=== PATIENT | female | born 1975 | race Caucasian/White ===

== ENCOUNTER 2017-04-04 23:38 | Inpatient (IN) | payer MEDICAID, MEDICARE ==
[2017-04-05 00:36] LABS: Urine Bilirubin Negative (Negative); Urine Glucose Negative (Negative); Urine Nitrite Negative (Negative)
[2017-04-05 00:43] LABS: Hematocrit 47 % (35-47); Hemoglobin 16.7 g/dl (12.0-16.0); Mean Corpuscular HGB Conc 35 g/dl (31-36); Mean Corpuscular Hemoglobin 33 pg (27-31); Mean Corpuscular Volume 94 fL (80-97); Mean Platelet Volume 8 um3 (7.4-10.4); Red Blood Count 5.05 10^6/ul (4.0-5.4); Red Cell Distribution Width 13 % (10.5-15); White Blood Count 8.3 10^3/ul (3.5-10.8)
[2017-04-05 00:51] LABS: Benzodiazepine Urine Screen None Detected (None Detect)
[2017-04-05] MEDS ORDERED: Nicotine GUM* 2 MG ONE (00:53)
[2017-04-05] MEDS ORDERED: Nicotine GUM* 2 MG PO ONE (00:54)
[2017-04-05 01:00] LABS: ALT 16 U/L (7-52); Albumin 4.6 g/dL (3.2-5.2); Alkaline Phosphatase 72 U/L (34-104); BUN/Creatinine Ratio 13.9 (8-20); Blood Urea Nitrogen 10 mg/dL (6-24); CO2 Carbon Dioxide 25 mmol/L (22-32); Calcium 9.7 mg/dL (8.6-10.3); Chloride 107 mmol/L (101-111); EGFR African American 113.7 (>60); EGFR Non-African American 88.4 (>60); Globulin 2.9 g/dL (2-4); Glucose 84 mg/dL (70-100); Sodium 134 mmol/L (133-145); Total Protein 7.5 g/dL (6.4-8.9)
[2017-04-05 01:03] LABS: Acetaminophen < 15 mcg/mL; Alcohol < 10 mg/dL (<10); Salicylate < 2.50 mg/dL (<30)
[2017-04-05 01:11] LABS: Anion Gap 2 mmol/L (2-11)
--- NOTE | 2017-04-05 02:57 | ED ---
Renato Langley Rebecca, scribed for Filiberto Coy MD on 04/05/17 at 0041 . Psychiatric Complaint - HPI Summary HPI Summary: Pt is a 41 y/o F who presents to ED c/o SIs for 2-3 weeks. Pt reports that she presents tonight because "this time I needed to." Pt has a suicide plan with no date with the idea of cutting her wrists or taking sleeping pills. No attempts at suicide. PMhx anxiety, depression, schizophrenia, bipolar disorder. - History Of Current Complaint Chief Complaint: EDMentalHealth Time Seen by Provider: 04/05/17 00:35 Hx Obtained From: Patient Hx Last Menstrual Period: 05/10/13 Onset/Duration: Lasting Weeks - 2-3 weeks, Still Present Character: Depressed - with SIs Aggravating Factor(s): Nothing Alleviating Factor(s): Nothing Related History: Positive For: Prior Psychiatric Issues - Anxiety, depression, schizophrenia, bipolar Has Suicidal: Reports: Thoughts, With A Plan - Allergies/Home Medications Allergies/Adverse Reactions: Allergies Allergy/AdvReac Type Severity Reaction Status Date / Time Aripiprazole [From Abilify] Allergy Itching Verified 05/03/16 19:24 control pills Allergy Unknown Uncoded 05/03/16 19:24 Reaction Details Home Medications: Home Medications Alive Once Daily Womens U 1 tab PO DAILY 04/05/17 [History Confirmed 04/05/17] Calcium Ascorbate [Vitamin C] 1,000 mg PO DAILY 04/05/17 [History Confirmed ] Buxlrge-Hhwgvtulj-Dhos [Calcium & Magnesium + Zin 334-134-5 mg] 1 tab PO DAILY 04/05/17 [History Confirmed 04/05/17] Cetirizine* [ZyrTEC 10 MG TAB*] 10 mg PO DAILY 04/05/17 [History Confirmed 04/05] Doxylamine Succinate (Sleep) [Unisom] 25 mg PO BEDTIME 04/05/17 [History Confirmed 04/05/17] Hydroxyzine Pamoate [Vistaril] 25 mg PO DAILY 04/05/17 [History Confirmed ] Iodine-Vitamin A [Alga] 1 cap PO DAILY 04/05/17 [History Confirmed 04/05/17] Paliperidone SUSTENNA* [Invega Sustenna*] 234 mg IM Q30D 04/05/17 [History Confirmed 04/05/17] PMH/Surg Hx/FS Hx/Imm Hx Endocrine/Hematology History: Denies: Hx Diabetes, Hx Thyroid Disease Cardiovascular History: Denies: Hx Hypertension Respiratory History: Reports: Hx Asthma - IN CHILDHOOD Denies: Hx Chronic Obstructive Pulmonary Disease (COPD) GI History: Denies: Hx Ulcer Musculoskeletal History: Denies: Hx Arthritis Psychiatric History: Reports: Hx Anxiety, Hx Depression, Hx Inpatient Treatment , Hx Community Mental Health Tx, Hx Schizophrenia - SCHIZOAFFECTIVE D/O, BIPOLAR TYPE, Hx Bipolar Disorder, Other Psychiatric Issues/Disorders - SCHIZOAFFECTIVE D/O Denies: Hx Attention Deficit Hyperactivity Disorder, Hx Eating Disorder, Hx Panic Disorder, Hx Post Traumatic Stress Disorder, Hx Suicide Attempt, Hx of Violent Episodes Against Others, Hx Substance Abuse Infectious Disease History: No Infectious Disease History: Denies: Hx Clostridium Difficile, Hx Hepatitis, Hx Human Immunodeficiency Virus (HIV), Hx of Known/Suspected MRSA, Hx Shingles, Hx Tuberculosis, Traveled Outside the [place] in Last 30 Days - Family History Known Family History: Positive: Other - Bipolar disorder Family History: Bipolar D/o - Social History Alcohol Use: None Alcohol Amount: UNKNOWN Hx Substance Use: No Substance Use Type: Reports: None Hx Tobacco Use: Yes - daily Smoking Status (MU): Current Every Day Smoker Type: Cigarettes Have You Smoked in the Last Year: No Review of Systems Negative: Fever Positive: Other - SIs with a plan All Other Systems Reviewed And Are Negative: Yes Physical Exam Triage Information Reviewed: Yes Vital Signs On Initial Exam: Initial Vitals Temp Pulse Resp BP Pulse Ox 97.3 F 91 18 115/76 95 04/04/17 23:41 04/04/17 23:41 04/04/17 23:41 04/04/17 23:41 04/04/17 23:41 Vital Signs Reviewed: Yes Appearance: Positive: Well-Appearing, No Pain Distress Skin: Positive: Warm Head/Face: Positive: Normal Head/Face Inspection Eyes: Positive: DANIELA ENT: Positive: Hearing grossly normal Neck: Positive: Supple Respiratory/Lung Sounds: Positive: Breath Sounds Present Cardiovascular: Positive: RRR Abdomen Description: Positive: Nontender, Soft Bowel Sounds: Positive: Present Musculoskeletal: Positive: Strength/ROM Intact Neurological: Positive: Alert, Oriented to Person Place, Time Diagnostics - Vital Signs Vital Signs Temp Pulse Resp BP Pulse Ox 04/04/17 23:44 98.6 F 66 16 115/76 100 04/04/17 23:41 97.3 F 91 18 115/76 95 - Laboratory Result Diagrams: 04/05/17 00:35 04/05/17 01:15 Lab Statement: Any lab studies that have been ordered have been reviewed, and results considered in the medical decision making process. Course/Dx - Course Assessment/Plan: Pt is a 41 y/o F who presents to ED c/o SIs for 2-3 weeks. Pt reports that she presents tonight because "this time I needed to." Pt has a suicide plan with no date with the idea of cutting her wrists or taking sleeping pills. No attempts at suicide. PMhx anxiety, depression, schizophrenia , bipolar disorder. Medically cleared for MHE at 0125. After [facility], after consult with Dr. Gonzalez it has been determined that the pt will be admitted. - Differential Dx/Clinical Impression Provider Diagnosis: Suicidal ideations - Physician Notifications Instructed by Provider To: Admit As Inpatient Discharge - Discharge Plan Condition: Fair Dis[place] [place] The documentation as recorded by the Renato ferreira Rebecca accurately reflects the service I personally performed and the decisions made by me, Filiberto Coy MD.
[2017-04-05] MEDS ORDERED: Mouth Piece, Nicotine* 1 EACH CARTRIDGE INH ONE (03:14)
[2017-04-05] MEDS: Nicotine Inhaler* 10 MG AMP INH PRN ×2 (03:54→21:00)
[2017-04-05] MEDS ORDERED: diPHENhydraMINE PO* 50 MG PO ONE (04:10)
[2017-04-05] MEDS ORDERED: hydrOXYzine HCL TAB* 25 MG PO ONE (04:10)
[2017-04-05] MEDS ORDERED: hydrOXYzine HCL TAB* 25 MG ONE (04:48)
[2017-04-05] MEDS ORDERED: diPHENhydraMINE PO* 50 MG ONE (04:49)
[2017-04-05] MEDS ORDERED: Al Hydrox/Mg Hydrox/Simet LIQ* 30 ML UDC PO PRN (06:20)
[2017-04-05] MEDS ORDERED: Acetaminophen TAB* 325 MG PO PRN (06:20)
[2017-04-05] MEDS: Nicotine GUM* 2 MG PO PRN ×7 (08:33→21:00)
[2017-04-05] MEDS: hydrOXYzine HCL TAB* 25 MG PO PRN ×3 (08:49→18:33)
[2017-04-05] MEDS: Vitamin THERAPEUTIC TAB PO SCH (10:54)
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
[2017-04-06] MEDS: Vitamin THERAPEUTIC TAB PO SCH (10:30)
[2017-04-06] MEDS: hydrOXYzine HCL TAB* 25 MG PO PRN ×3 (10:32→21:27)
[2017-04-06] MEDS: Nicotine GUM* 2 MG PO PRN ×6 (10:32→21:25)
[2017-04-06] MEDS ORDERED: diPHENhydraMINE PO* 50 MG PO PRN (13:27)
[2017-04-06] MEDS: lamoTRIgine TAB(*) 25 MG PO SCH (14:28)
[2017-04-07] MEDS: Benzocaine/Menthol LOZ* 1 LOZENGE PO PRN ×2 (01:49→23:23)
[2017-04-07] MEDS: Nicotine GUM* 2 MG PO PRN ×6 (09:16→20:22)
[2017-04-07] MEDS: lamoTRIgine TAB(*) 25 MG PO SCH (09:17)
[2017-04-07] MEDS: Vitamin THERAPEUTIC TAB PO SCH (09:17)
[2017-04-07] MEDS: hydrOXYzine HCL TAB* 25 MG PO PRN ×2 (11:33→17:58)
[2017-04-07] MEDS: Nicotine Inhaler* 10 MG AMP INH PRN (11:33)
--- NOTE | 2017-04-07 11:53 | PN ---
MHU: Group Therapy Note - Service Type Service Type: [id number] Group Psychotherapy - Cognitive Behavioral Group Therapy ( CBT):Patient was attentive and participatory in CBT programming this morning, and remained in good behavioral control. Patient expressed positive insights regarding relevant treatment interventions and goals.
--- NOTE | 2017-04-07 14:47 | PN ---
Subjective - Subjective Service Type: 93790 Hosp care 15 min low complexity Subjective: Patient states that her mood is up and down and she's continuing to have intermittent SI throughout the day. She did not sleep well on Benadryl and would like to try trazodone. She identifies her lack of socialization as a main cause of her depression and states that she doesn't have a car and lives over 5 miles out of [place]. This has prompted her to explore the possibility of a [employer] apartment here in town, although she's ambivalent about this due to only having 6 more years to pay off her current home. Objective - Appearance Appearance: Well Developed/Nourished Dysmorphic Features: No Hygiene: Normal Grooming: Well Kept - Behavior Psychomotor Activities: Normal Exhibits Abnormal Movement: No - Attitude and Relatedness Attitude and Relatedness: Cooperative Eye Contact: Fair - Speech Quality: Unpressured Latencies: Normal Quantity: Appropriate - Mood Patient's Decription of Mood: "Sad" - Affect Observed Affect: Fair Affect Consistent with: Euthymia - Thought Process Patient's Thought Process: Coherent Thought Content: Yes Passive Wish, No Suicidal Planning, No Homicidal Ideation, No Paranoid Ideation - Sensorium Experiencing Hallucinations: No, Sensorium is Clear Type of Hallucinations: Visual: No, Auditory: No, Command: No - Level of Consciousness Level of Consciousness: Alert Orientation: Yes Intact, Yes Orientated to Time, Yes Orientated to Place, Yes Orientated to Person - Impulse Control Impulse Control: Tenuous - Insight and Judgement Insight and Judgement: Fair - Group Participation Particating in Group Activities: Yes - Medication Management Medication Management Adherence: Yes Assessment - Assessment Merits Inpatient Hospitalization: For Immediate Safety, For Stabilization Inpatient DSM-IV Dx: Schizoaffective DO, Bipolar Type Clinical Impression: 41 y.o. single, white female with a history of schizoaffective DO, Bipolar type who presents on voluntary status seeking hospitalization for SI Plan - Plan Treatment Plan: Name: ALICE KENNEY Birthdate: 1975 [id number] The patient is taking Invega Sustenna 234mg monthly, next due Wed (04/09), and is now on lamotrigine 25mg PO qam. Will increase lamotrigine to 50mg PO qday. Trazodone 50mg PO qhs for sleep. Continue to treat on the inpatient unit. Continued Medication Management: Different Medication Medications: Current Medications Acetaminophen (Tylenol Tab*) 650 mg PO Q4H PRN PRN Reason: PAIN or TEMP > 101 F Al Hydrox/Mg Hydrox/Simethicone (Maalox Plus*) 30 ml PO Q4H PRN PRN Reason: INDIGESTION Hydroxyzine HCl (Atarax Tab*) 50 mg PO QID PRN PRN Reason: ANXIETY Last Admin: 04/07/17 11:33 Dose: 50 mg Lamotrigine (Lamictal Tab(*)) 50 mg PO DAILY ELLY Multivitamins (Theragran Tab*) 1 tab PO DAILY ELLY Last Admin: 04/07/17 09:17 Dose: 1 tab Nicotine (Nicotine Inhaler*) 10 mg INH Q2H PRN PRN Reason: CRAVING Last Admin: 04/07/17 11:33 Dose: 10 mg Nicotine Polacrilex (Nicotine Gum*) 2 mg PO Q2H PRN PRN Reason: CRAVING Last Admin: 04/07/17 13:40 Dose: 2 mg Throat Lozenges (Chloraseptic Torie*) 1 torie PO Q6H PRN PRN Reason: SORE THROAT Last Admin: 04/07/17 01:49 Dose: 1 torie Trazodone HCl (Desyrel Tab*) 50 mg PO BEDTIME ELLY - Discharge Plan Discharge Plan: Inpatient Hospitalization
[2017-04-07] MEDS: traZODone TAB* 50 MG TAB PO SCH (21:44)
[2017-04-08 08:20] LABS: HDL Cholesterol 31.2 mg/dL
[2017-04-08] MEDS: Vitamin THERAPEUTIC TAB PO SCH (08:28)
[2017-04-08] MEDS: lamoTRIgine TAB(*) 25 MG PO SCH (08:28)
[2017-04-08] MEDS: Nicotine GUM* 2 MG PO PRN ×7 (08:29→20:56)
[2017-04-08] MEDS: hydrOXYzine HCL TAB* 25 MG PO PRN ×2 (08:55→18:54)
[2017-04-08] MEDS: Nicotine Inhaler* 10 MG AMP INH PRN ×2 (12:32→18:54)
--- NOTE | 2017-04-08 13:23 | PN ---
Subjective - Subjective Service Type: 81525 Hosp care 15 min low complexity Subjective: Patient is seen along with URI Botello for follow up. She apparently had made comments to Ms. Ayan earlier that one of her motivations for coming into the hospital was getting on top of the waiting list for [facility] in the community. The patient is informed that this is not how the system works and she will have to wait her turn on an outpatient basis. She denies SI and is tolerating her medications well. Objective - Appearance Appearance: Well Developed/Nourished Dysmorphic Features: No Hygiene: Normal Grooming: Fairly Well Kept - Behavior Psychomotor Activities: Normal Exhibits Abnormal Movement: No - Attitude and Relatedness Attitude and Relatedness: Cooperative Eye Contact: Fair - Speech Quality: Unpressured Latencies: Normal Quantity: Appropriate - Mood Patient's Decription of Mood: "Okay" - Affect Observed Affect: Fair Affect Consistent with: Euthymia - Thought Process Patient's Thought Process: Coherent Thought Content: No Passive Wish, No Suicidal Planning, No Homicidal Ideation, No Paranoid Ideation - Sensorium Experiencing Hallucinations: No, Sensorium is Clear Type of Hallucinations: Visual: No, Auditory: No, Command: No - Level of Consciousness Level of Consciousness: Alert Orientation: Yes Intact, Yes Orientated to Time, Yes Orientated to Place, Yes Orientated to Person - Impulse Control Impulse Control: Intact - Insight and Judgement Insight and Judgement: Good - Group Participation Particating in Group Activities: Yes - Medication Management Medication Management Adherence: Yes Assessment - Assessment Merits Inpatient Hospitalization: Consolidate Improvements, Pending Safe DC Plan Inpatient DSM-IV Dx: Schizoaffective DO, Bipolar Type Clinical Impression: 41 y.o. single, white female with a history of schizoaffective DO, Bipolar type who presents on voluntary status seeking hospitalization for SI Plan - Plan Treatment Plan: Name: ALICE KENNEY Birthdate: 1975 [id number] The patient is taking Invega Sustenna 234mg monthly, next due tomorrow, Fri (), and is now also on lamotrigine 50mg PO qam. Trazodone 50mg PO qhs for sleep. Likely d/c to home tomorrow. Will refer to [facility] program at [facility] to increase socialization. Continued Medication Management: Different Medication Medications: Current Medications Acetaminophen (Tylenol Tab*) 650 mg PO Q4H PRN PRN Reason: PAIN or TEMP > 101 F Al Hydrox/Mg Hydrox/Simethicone (Maalox Plus*) 30 ml PO Q4H PRN PRN Reason: INDIGESTION Hydroxyzine HCl (Atarax Tab*) 50 mg PO QID PRN PRN Reason: ANXIETY Last Admin: 04/08/17 08:55 Dose: 50 mg Lamotrigine (Lamictal Tab(*)) 50 mg PO DAILY [facility] Last Admin: 04/08/17 08:28 Dose: 50 mg Multivitamins (Theragran Tab*) 1 tab PO DAILY [facility] Last Admin: 04/08/17 08:28 Dose: 1 tab Nicotine (Nicotine Inhaler*) 10 mg INH Q2H PRN PRN Reason: CRAVING Last Admin: 04/08/17 12:32 Dose: 10 mg Nicotine Polacrilex (Nicotine Gum*) 2 mg PO Q2H PRN PRN Reason: CRAVING Last Admin: 04/08/17 12:32 Dose: 2 mg Paliperidone Palmitate (Invega Sustenna*) 234 mg IM ONCE ONE Stop: 04/09/17 09:01 Throat Lozenges (Chloraseptic Ángel*) 1 ángel PO Q6H PRN PRN Reason: SORE THROAT Last Admin: 04/07/17 23:23 Dose: 1 ángel Trazodone HCl (Desyrel Tab*) 50 mg PO BEDTIME [facility] Last Admin: 04/07/17 21:44 Dose: 50 mg - Discharge Plan Discharge Plan: Outpatient Follow Up Outpatient Program[facility] Lab Results - Lab Results Lab Results: 04/08/17 04/08/17 07:36 07:36 Hemoglobin A1c 4.9 Triglycerides 391 Cholesterol 195 LDL Cholesterol 86 HDL Cholesterol 31.2
[2017-04-08] MEDS: traZODone TAB* 50 MG TAB PO SCH (21:36)
[2017-04-09] MEDS: Benzocaine/Menthol LOZ* 1 LOZENGE PO PRN (01:12)
[2017-04-09] MEDS: Nicotine GUM* 2 MG PO PRN ×2 (08:40→10:58)
[2017-04-09] MEDS: lamoTRIgine TAB(*) 25 MG PO SCH (08:40)
[2017-04-09] MEDS: Vitamin THERAPEUTIC TAB PO SCH (08:41)
[2017-04-09] MEDS ORDERED: Paliperidone SUSTENNA* 234 MG/1.5 ML IM ONE (09:00)
[2017-04-09 10:05] VITALS: BP 99/69
--- NOTE | 2017-04-09 11:40 | PN ---
MHU: Group Therapy Note - Service Type Service Type: [id number] Group Psychotherapy - Cognitive Behavioral Group Therapy ( CBT):Patient was attentive and participatory in CBT programming this morning, and remained in good behavioral control. Patient expressed positive insights regarding relevant treatment interventions and goals.
[2017-04-09] MEDS: Nicotine Inhaler* 10 MG AMP INH PRN (12:52)
--- NOTE | 2017-04-10 03:39 | DS ---
DISCHARGE SUMMARY: DATE OF ADMISSION: 04/05/17 DATE OF DISCHARGE: 04/09/17 DISCHARGE DIAGNOSES: Onward I: Schizoaffective disorder bipolar type. Onward II: Deferred. Onward III: Remote history of asthma. Onward IV: Severe primary support stressors. Onward V: At the time of admission was 45 and at the time of discharge was 60. CONDITION AT THE TIME OF DISCHARGE: Stable. The patient is calm and cooperative. She has been attending groups and has been safe on all checks. She is social with peers. She appears to be euthymic. She is tolerating her injectable antipsychotic well and she is tolerating her new mood stabilizer lamotrigine well. She has been educated about the risk of a severe rash from this medication and has been instructed to monitor her skin daily and report any rash findings to her outpatient provider. Furthermore, she denies suicidal or homicidal ideations and she is indicating a willingness to continue to follow up at the [facility]. MENTAL STATUS EXAM: At the time of discharge, the patient is a middle-aged white female with close crop short hair, eye glasses, wearing a blue sweat suit. She has got fair eye contact, good posture and is fairly easy to establish a rapport with. Speech has a normal rate, tone, and volume. Mood is euthymic with a full affect. Thought process is linear and goal directed. Thought content is significant for her desire to be discharged from the hospital so that she can follow up with [facility] and try to get into housing services through the [facility]. She denies suicidal or homicidal ideations. She denies auditory or visual hallucinations. She denies paranoia. Insight and judgment are fair given her willingness to seek outpatient treatment. Cognitively, she is awake and alert with what would appear to be an average intellect. DISCHARGE INSTRUCTIONS: To the patient are as follows: A. Medications. 1. She is taking Invega Sustenna 234 mg IM every 4 weeks. Her next injection will be due on 05/07/17. 2. In addition, she is taking hydroxyzine 25 mg as needed for anxiety every 6 hours. 3. She is also taking lamotrigine 50 mg p.o. daily. 4. Trazodone 50 mg p.o. daily. B. Diet: Regular. C. Activity: As tolerated. The patient is declining continuation of nicotine replacement therapy indicating her preference to continue smoking cigarettes for the time being. There are no laboratory or diagnostic studies pending at the time of discharge. D. Followup Care: The patient will follow up within 1 week at [facility]. We are encouraging her to increase her socialization by attending social programing through the [facility] program, which is similarly affiliated with [facility]. HOSPITAL COURSE: Part A: Reason for admission: The patient is a 41-year-old single white female with a history of schizoaffective disorder, depressed type, who arrives at our emergency room requesting voluntary admission due to suicidal ideations. She stated at that time "I have been struggling with feeling suicidal over the past few weeks." She reported that she had been having mental imagery in her mind of slashing her wrist or thinking about taking [id number] sleeping pills. Currently, she lives alone in her own house, which is 5 miles outside of [place]. She notes that she does have access to several over-the- counter medications and could overdose easily if she had been allowed to leave home from the emergency room. She did at that time endorse feeling hopeless and helpless at times stating "I am very isolated." She did deny auditory or visual hallucinations and when prompted on the need for inpatient admission, she stated "I was conflicted because I don't want to be locked up, but then when you said that you would call the doctor for him to make a decision, I just panicked and I thought about the possibility of being discharged." Apparently, she has scheduled an interview with the [facility] within the next several weeks. She is hoping to get rid of her current house selling it in order to move into [facility] so that she could become less socially isolated. The patient states that she is compliant with her Invega Sustenna having received her last dose on 03/12/17, at [facility]. Part B: Psychiatric treatment rendered: The patient was admitted to the adult behavioral health unit and placed on q.15-minute check for her own safety. Because of her depression, we initiated a trial of lamotrigine initially at 25 mg, but then increased 50, which she tolerated well. She complained of difficulty sleeping and we started a trial of 50 mg of trazodone at night time, which was beneficial. For anxiety, she used 25 mg of hydroxyzine. The patient denied suicidal thinking throughout her hospitalization and at one point seemed to admit to staff that her main motivation for coming into the hospital was to try to get to the top of the list of those waiting for support of housing through [place]. She was educated that this is not a meaningful use of inpatient psychiatric resources and she was strongly encouraged to accept discharge, so that she could receive followup care in a less restrictive setting. We did want to give her Invega prior to leaving and she received this on the date of discharge, which is the 04/09/17. At this time, she has been safe on all checks. She denies any active suicidal ideations and she is willing to increase her socialization by attending groups at [facility] through the [employer] organization, which we have formally referred her to. At this time, I do think that she is better served in a less restrictive setting and we certainly wish her the best for a healthy and satisfying future. [id number]/[facility] #: [id number] TIFFANI
== END 2017-04-09 11:55 | disposition home or self-care (01) | DRG 885 ==
LOC: ED 23:38 → BSU 04-05 05:08
PROVIDERS: ADMIT Psychiatry & Neurology Psychiatry; ATTEND Psychiatry & Neurology Psychiatry
DX: F25.0 Schizoaffective disorder, bipolar type (principal); R45.851 Suicidal ideations; F17.210 Nicotine dependence, cigarettes, uncomplicated; Z79.899 Other long term (current) drug therapy; Z88.8 Allergy status to other drugs, medicaments and biological substances
CPT/HCPCS: 36415; 80053; 80061; 80307; 80320; 80329; 81003; 83036; 84443; 85025; 90853; 99222; 99231; 99238; A9270-GY; G0480

== ENCOUNTER 2017-09-25 18:41 | Emergency (ER) | payer MEDICARE, MEDICAID ==
[2017-09-25 20:18] LABS: EGFR Non-African American 92.9 (>60)
[2017-09-25 20:22] LABS: ABS Basophils 0 10^3/ul (0-0.2); ABS Eosinophils 0.1 10^3/ul (0-0.6); ABS Monocytes 0.6 10^3/ul (0-0.8); ABS Neutrophils 8.9 10^3/ul (1.5-7.7); ABS Nucleated RBC 0 10^3/ul; Eosinophil % 0.6 % (0-6); Hematocrit 45 % (35-47); Hemoglobin 16.1 g/dl (12.0-16.0); Lymphocyte % 9.1 % (25-47); Mean Corpuscular HGB Conc 36 g/dl (31-36); Mean Corpuscular Hemoglobin 34 pg (27-31); Mean Corpuscular Volume 94 fL (80-97); Mean Platelet Volume 8 um3 (7.4-10.4); Nucleated Red Blood Cells % 0; Platelet Count 195 10^3/ul (150-450); Red Blood Count 4.79 10^6/ul (4.0-5.4); Red Cell Distribution Width 12 % (10.5-15); White Blood Count 10.6 10^3/ul (3.5-10.8)
[2017-09-25 20:44] LABS: Urine Appearance Clear; Urine Blood Negative (Negative); Urine Color Straw; Urine Ketones Negative (Negative); Urine Protein Negative (Negative); Urine Specific Gravity 1.005 (1.010-1.030); Urine Urobilinogen Negative (Negative)
--- NOTE | 2017-09-25 21:47 | ED ---
Paco Langley Jennifer, scribed for Juan Montez MD on 09/25/17 at 1924 . Substance Abuse/Use - HPI Summary HPI Summary: The patient is a 41 year old female who arrived to the ED by EMS after overdosing on twenty 50 mg pills of Trazadone at 17:30. She called 911 and vomited several times after. The patient describes that she was feeling lonely today because she hasnt had a boyfriend for ten years. The loneliness was building up but was particularly bad today. She denies taking any extra medication today besides what she is normally prescribed. - History Of Current Complaint Chief Complaint: EDOverdose Stated Complaint: POSS OVERDOSE Time Seen by Provider: 09/25/17 19:13 Hx Obtained From: Patient Hx Last Menstrual Period: 05/10/13 Onset/Duration of Drug/ETOH Abuse: Hours - Taken at 17:30 today Ingestion History: Type/Name Of Drug - Trazadone, Amount Ingested - Twenty 50mg pills, Approximate Time Of Ingestion - 17:30 Overdose Characteristics: Oral Timing Of Abuse: Binge Use Severity Initially: Mild Severity Currently: Mild Character: Depressed, Other - Lonely Aggravating Factor(s): Nothing Alleviating Factor(s): Nothing Associated Signs And Symptoms: Vomiting - Allergies/Home Medications Allergies/Adverse Reactions: Allergies Allergy/AdvReac Type Severity Reaction Status Date / Time MS Aripiprazole Allergy Itching Verified 05/03/16 19:24 [facility] pills Allergy Unknown Uncoded 05/03/16 19:24 Reaction Details Home Medications: Home Medications Paliperidone SUSTENNA* [Invega Sustenna*] 234 mg IM MONTHLY 09/25/17 [History Confirmed 09/25/17] lamoTRIgine TAB(*) [LaMICtal TAB(*)] 200 mg PO DAILY 09/25/17 [History Confirmed 09/25/17] PMH/Surg Hx/FS Hx/Imm Hx Endocrine/Hematology History: Denies: Hx Diabetes, Hx Thyroid Disease Cardiovascular History: Denies: Hx Hypertension Respiratory History: Reports: Hx Asthma - IN CHILDHOOD Denies: Hx Chronic Obstructive Pulmonary Disease (COPD) GI History: Denies: Hx Ulcer Musculoskeletal History: Denies: Hx Arthritis Sensory History: Reports: Hx Contacts or Glasses Denies: Hx Hearing Aid Opthamlomology History: Reports: Hx Contacts or Glasses Psychiatric History: Reports: Hx Anxiety, Hx Depression, Hx Inpatient Treatment , Hx Community Mental Health Tx, Hx Schizophrenia - SCHIZOAFFECTIVE D/O, BIPOLAR TYPE, Hx Bipolar Disorder, Other Psychiatric Issues/Disorders - SCHIZOAFFECTIVE D/O Denies: Hx Attention Deficit Hyperactivity Disorder, Hx Eating Disorder, Hx Panic Disorder, Hx Post Traumatic Stress Disorder, Hx Suicide Attempt, Hx of Violent Episodes Against Others, Hx Substance Abuse - Immunization History Date of Tetanus Vaccine: UTD Date of Influenza Vaccine: 2015 Infectious Disease History: No Infectious Disease History: Denies: Hx Clostridium Difficile, Hx Hepatitis, Hx Human Immunodeficiency Virus (HIV), Hx of Known/Suspected MRSA, Hx Shingles, Hx Tuberculosis, Traveled Outside the [place] in Last 30 Days - Family History Known Family History: Positive: Other - Bipolar disorder Family History: Bipolar D/o - Social History Alcohol Use: None Alcohol Amount: UNKNOWN Hx Substance Use: No Substance Use Type: Reports: None Hx Tobacco Use: Yes - daily Smoking Status (MU): Heavy Every Day Tobacco Smoker Type: Cigarettes Amount Used/How Often: 2 ppd Length of Time of Smoking/Using Tobacco: 26 years Have You Smoked in the Last Year: Yes Review of Systems Negative: Fever Positive: Depressed All Other Systems Reviewed And Are Negative: Yes Physical Exam - Summary Physical Exam Summary: Appearance: The patient is well-nourished in no acute distress and in no acute pain. Skin: The skin is warm and dry and skin color reflects adequate perfusion. HEENT: ~The head is normocephalic and atraumatic. The pupils are equal and reactive. The conjunctivae are clear and without drainage. ~Nares are patent and without drainage. ~Mouth reveals moist mucous membranes and the throat is without erythema and exudate. ~The external ears are intact. The ear canals are patent and without drainage. The tympanic membranes are intact. Neck: the neck is supple with full range of motion and non-tender. There are no carotid bruits. ~There is no neck vein distension. Respiratory: Chest is non-tender. ~Lungs are clear to auscultation and breath sounds are symmetrical and equal. Cardiovascular: Heart is regular rate and rhythm. ~There is no murmur or rub auscultated. ~~There is no peripheral edema and pulses are symmetrical and equal. Abdomen: The abdomen is soft and non-tender. ~There are normal bowel sounds heard in all four quadrants and there is no organomegaly palpated. Musculoskeletal: There is no back tenderness noted. ~Extremities are non-tender with full range of motion. ~There is good capillary refill. ~There is no peripheral edema or calf tenderness elicited. Neurological: Patient is alert and oriented to person, place and time. ~The patient has symmetrical motor strength in all four extremities. ~Cranial nerves are grossly intact. Deep tendon reflexes are symmetrical and equal in all four extremities. Psychiatric: The patient has an appropriate affect and does not exhibit any anxiety or depression. Triage Information Reviewed: Yes Vital Signs On Initial Exam: Initial Vitals Temp Pulse Resp BP Pulse Ox 97.7 F 90 14 128/72 90 09/25/17 18:45 09/25/17 18:45 09/25/17 18:45 09/25/17 18:45 09/25/17 18:45 Vital Signs Reviewed: Yes Diagnostics - Vital Signs Vital Signs Temp Pulse Resp BP Pulse Ox 09/25/17 18:45 97.7 F 90 14 128/72 90 - Laboratory Lab Results: Lab Results 09/25/17 09/25/17 09/25/17 Range/Units 19:35 19:35 19:35 WBC 10.6 (3.5-10.8) 10^3/ul RBC 4.79 (4.0-5.4) 10^6/ul Hgb 16.1 H (12.0-16.0) g/dl Hct 45 (35-47) % MCV 94 (80-97) fL MCH 34 H (27-31) pg MCHC 36 (31-36) g/dl RDW 12 (10.5-15) % Plt Count 195 (150-450) 10^3/ul MPV 8 (7.4-10.4) um3 Neut % (Auto) 84.3 H (38-83) % Lymph % (Auto) 9.1 L (25-47) % [place] % (Auto) 5.8 (1-9) % Eos % (Auto) 0.6 (0-6) % Baso % (Auto) 0.2 (0-2) % Absolute Neuts (auto) 8.9 H (1.5-7.7) 10^3/ul Absolute Lymphs (auto) 1.0 (1.0-4.8) 10^3/ul Absolute Monos (auto) 0.6 (0-0.8) 10^3/ul Absolute Eos (auto) 0.1 (0-0.6) 10^3/ul Absolute Basos (auto) 0 (0-0.2) 10^3/ul Absolute Nucleated RBC 0 10^3/ul Nucleated RBC % 0 Sodium 138 (133-145) mmol/L Potassium 3.5 (3.5-5.0) mmol/L Chloride 106 (101-111) mmol/L Carbon Dioxide 26 (22-32) mmol/L Anion Gap 6 (2-11) mmol/L BUN 9 (6-24) mg/dL Creatinine 0.69 (0.51-0.95) mg/dL Est GFR ( Amer) 119.4 (>60) Est GFR (Non-Af Amer) 92.9 (>60) BUN/Creatinine Ratio 13.0 (8-20) Glucose 102 H (70-100) mg/dL Lactic Acid 1.3 (0.5-2.0) mmol/L Calcium 9.5 (8.6-10.3) mg/dL Total Bilirubin 0.30 (0.2-1.0) mg/dL AST 19 (13-39) U/L ALT 14 (7-52) U/L Alkaline Phosphatase 64 (34-104) U/L Total Protein 7.5 (6.4-8.9) g/dL Albumin 4.8 (3.2-5.2) g/dL Globulin 2.7 (2-4) g/dL Albumin/Globulin Ratio 1.8 (1-3) Beta HCG, Quant < 0.60 mIU/mL Urine Color Urine Appearance Urine pH (5-9) Ur Specific [place] (1.010-1.030) Urine Protein (Negative) Urine Ketones (Negative) Urine Blood (Negative) Urine Nitrate (Negative) Urine Bilirubin (Negative) Urine Urobilinogen (Negative) Ur Leukocyte Esterase (Negative) Urine Glucose (Negative) Salicylates < 2.50 (<30) mg/dL Urine Opiates Screen (None Detect) Acetaminophen < 15 mcg/mL Ur Barbiturates Screen (None Detect) Ur Phencyclidine Scrn (None Detect) Ur Amphetamines Screen (None Detect) U Benzodiazepines Scrn (None Detect) Urine Cocaine Screen (None Detect) U Cannabinoids Screen (None Detect) Serum Alcohol < 10 (<10) mg/dL 09/25/17 09/25/17 Range/Units 20:26 20:26 WBC (3.5-10.8) 10^3/ul RBC (4.0-5.4) 10^6/ul Hgb (12.0-16.0) g/dl Hct (35-47) % MCV (80-97) fL MCH (27-31) pg MCHC (31-36) g/dl RDW (10.5-15) % Plt Count (150-450) 10^3/ul MPV (7.4-10.4) um3 Neut % (Auto) (38-83) % Lymph % (Auto) (25-47) % [place] % (Auto) (1-9) % Eos % (Auto) (0-6) % Baso % (Auto) (0-2) % Absolute Neuts (auto) (1.5-7.7) 10^3/ul Absolute Lymphs (auto) (1.0-4.8) 10^3/ul Absolute Monos (auto) (0-0.8) 10^3/ul Absolute Eos (auto) (0-0.6) 10^3/ul Absolute Basos (auto) (0-0.2) 10^3/ul Absolute Nucleated RBC 10^3/ul Nucleated RBC % Sodium (133-145) mmol/L Potassium (3.5-5.0) mmol/L Chloride (101-111) mmol/L Carbon Dioxide (22-32) mmol/L Anion Gap (2-11) mmol/L BUN (6-24) mg/dL Creatinine (0.51-0.95) mg/dL Est GFR ( Amer) (>60) Est GFR (Non-Af Amer) (>60) BUN/Creatinine Ratio (8-20) Glucose (70-100) mg/dL Lactic Acid (0.5-2.0) mmol/L Calcium (8.6-10.3) mg/dL Total Bilirubin (0.2-1.0) mg/dL AST (13-39) U/L ALT (7-52) U/L Alkaline Phosphatase (34-104) U/L Total Protein (6.4-8.9) g/dL Albumin (3.2-5.2) g/dL Globulin (2-4) g/dL Albumin/Globulin Ratio (1-3) Beta HCG, Quant mIU/mL Urine Color Straw Urine Appearance Clear Urine pH 6.0 (5-9) Ur Specific [place] 1.005 L (1.010-1.030) Urine Protein Negative (Negative) Urine Ketones Negative (Negative) Urine Blood Negative (Negative) Urine Nitrate Negative (Negative) Urine Bilirubin Negative (Negative) Urine Urobilinogen Negative (Negative) Ur Leukocyte Esterase Negative (Negative) Urine Glucose Negative (Negative) Salicylates (<30) mg/dL Urine Opiates Screen None detected (None Detect) Acetaminophen mcg/mL Ur Barbiturates Screen None detected (None Detect) Ur Phencyclidine Scrn None detected (None Detect) Ur Amphetamines Screen None detected (None Detect) U Benzodiazepines Scrn None detected (None Detect) Urine Cocaine Screen None detected (None Detect) U Cannabinoids Screen None detected (None Detect) Serum Alcohol (<10) mg/dL Result Diagrams: 09/25/17 19:35 09/25/17 19:35 Lab Statement: Any lab studies that have been ordered have been reviewed, and results considered in the medical decision making process. - EKG 19:18 Cardiac Rate: NL EKG Rhythm: Sinus Rhythm - 82 BPM EKG Interpretation: Borderline QTC Course/Dx - Course Course Of Treatment: Ms. Philip was depressed and took an unknown quantity of trazodone. She called EMS herself after. Her W/U is negative and she is being observed at this time. - Diagnoses Provider Diagnoses: Overdose Discharge - Discharge Plan Condition: Stable Disposition: OTHER Discharge Disposition Comment: Signed out at change of shift to Dr. Cifuentes Referrals: Renate Nicholson MD [Medical Doctor] - The documentation as recorded by the Paco ferreira Jennifer accurately reflects the service I personally performed and the decisions made by me, Juan Montez MD.
[2017-09-26 04:46] VITALS: BP 107/64
--- NOTE | 2017-09-26 04:46 | ED ---
I, Meera Ly, scribed for Kiran Cifuentes MD on 09/26/17 at 0440 . Progress - Consult/PCP Time Called: 18:45 Course/Dx - Course Course Of Treatment: Ms. Philip was depressed and took an unknown quantity of trazodone. She called EMS herself after. Her W/U is negative and she is being observed at this time. The pt is safe to discharge. - Diagnoses Provider Diagnoses: Overdose, Depression The documentation as recorded by the Malachi ferreira Stephanie accurately reflects the service I personally performed and the decisions made by me, Kiran Cifuentes MD.
== END 2017-09-26 04:45 ==
LOC: ED 18:41
DX: T43.212A Poisoning by selective serotonin and norepinephrine reuptake inhibitors, intentional self-harm, initial encounter (principal); F17.210 Nicotine dependence, cigarettes, uncomplicated; Z88.8 Allergy status to other drugs, medicaments and biological substances
CPT/HCPCS: 36415; 80053; 80307; 80320; 80329; 81003; 83605; 84702; 85025; 93005; 99285; G0480

== ENCOUNTER 2018-05-10 13:56 | Emergency (ER) | payer MEDICARE, MEDICAID ==
--- NOTE | 2018-05-10 14:19 | ED ---
HPI Chest Pain - HPI Summary HPI Summary: This patient is a 42 year old F BIBA to [facility] with a chief complaint of L-sided CP that began at approximately 1000 today. The patient rates the pain 2/10 in severity. Symptoms aggravated by deep breaths. Symptoms alleviated by nothing. Patient reports SOB. Patient denies nausea and vomiting. Patient reports that she has similar chest pains approximately every 6 months that resolve on their own. - History of Current Complaint Chief Complaint: EDChestPainROMI Time Seen by Provider: 05/10/18 14:09 Hx Obtained From: Patient Hx Last Menstrual Period: 05/10/13 Onset/Duration: Started Hours Ago, Still Present Timing: Constant Initial Severity: Mild Current Severity: Mild Pain Intensity: 2 Pain Scale Used: 0-10 Numeric Chest Pain Location: Left Lateral Chest Pain Radiates: No Aggravating Factor(s): Deep Breaths Alleviating Factor(s): Nothing Associated Signs and Symptoms: Positive: Shortness of Breath. Negative: Nausea , Vomiting - Additional Pertinent History Primary Care Physician: ELENO - Allergy/Home Medications Allergies/Adverse Reactions: Allergies Allergy/AdvReac Type Severity Reaction Status Date / Time MS Aripiprazole Allergy Itching Verified 05/03/16 19:24 [From [facility]] control pills Allergy Unknown Uncoded 05/03/16 19:24 Reaction Details PMH/Surg Hx/FS Hx/Imm Hx Previously Healthy: No Endocrine/Hematology History: Denies: Hx Diabetes, Hx Thyroid Disease Cardiovascular History: Denies: Hx Hypertension Respiratory History: Reports: Hx Asthma - IN CHILDHOOD Denies: Hx Chronic Obstructive Pulmonary Disease (COPD) GI History: Denies: Hx Ulcer Musculoskeletal History: Denies: Hx Arthritis Sensory History: Reports: Hx Contacts or Glasses Denies: Hx Hearing Aid Opthamlomology History: Reports: Hx Contacts or Glasses Psychiatric History: Reports: Hx Anxiety, Hx Depression, Hx Inpatient Treatment , Hx Community Mental Health Tx, Hx Schizophrenia - SCHIZOAFFECTIVE D/O, BIPOLAR TYPE, Hx Bipolar Disorder, Other Psychiatric Issues/Disorders - SCHIZOAFFECTIVE D/O Denies: Hx Attention Deficit Hyperactivity Disorder, Hx Eating Disorder, Hx Panic Disorder, Hx Post Traumatic Stress Disorder, Hx Suicide Attempt, Hx of Violent Episodes Against Others, Hx Substance Abuse - Cancer History Hx Chemotherapy: No Hx Radiation Therapy: No - Immunization History Date of Tetanus Vaccine: UTD Date of Influenza Vaccine: 2015 Infectious Disease History: No Infectious Disease History: Denies: Hx Clostridium Difficile, Hx Hepatitis, Hx Human Immunodeficiency Virus (HIV), Hx of Known/Suspected MRSA, Hx Shingles, Hx Tuberculosis, Traveled Outside the [place] in Last 30 Days - Family History Known Family History: Positive: Cardiac Disease - [place] - father at 49, Other - Bipolar disorder Family History: Bipolar D/o - Social History Occupation: Disabled Lives: With Family Alcohol Use: None Alcohol Amount: UNKNOWN Hx Substance Use: No Substance Use Type: Reports: None Hx Tobacco Use: Yes - daily Smoking Status (MU): Former Smoker Type: Cigarettes Amount Used/How Often: 2 ppd Length of Time of Smoking/Using Tobacco: 26 years Have You Smoked in the Last Year: Yes Review of Systems Positive: Chest Pain Positive: Shortness Of Breath Negative: Vomiting, Nausea All Other Systems Reviewed And Are Negative: Yes Physical Exam - Summary Physical Exam Summary: VITAL SIGNS: Reviewed. GENERAL: Patient is a well-developed and nourished female who is lying comfortable in the stretcher. Patient is not in any acute respiratory distress. HEAD AND FACE: No signs of trauma. No ecchymosis, hematomas or skull depressions. No sinus tenderness. EYES: PERRLA, EOMI x 2, No injected conjunctiva, no nystagmus. EARS: Hearing grossly intact. Ear canals and tympanic membranes are within normal limits. MOUTH: Oropharynx within normal limits. NECK: Supple, trachea is midline, no adenopathy, no JVD, no carotid bruit, no c- spine tenderness, neck with full ROM. CHEST: Symmetric, no tenderness at palpation LUNGS: Clear to auscultation bilaterally. No wheezing or crackles. CVS: Regular rate and rhythm, S1 and S2 present, no murmurs or gallops appreciated. ABDOMEN: Soft, non-tender. No signs of distention. No rebound no guarding, and no masses palpated. Bowel sounds are normal. EXTREMITIES: FROM in all major joints, no edema, no cyanosis or clubbing. NEURO: Alert and oriented x 3. No acute neurological deficits. Speech is normal and follows commands. SKIN: Dry and warm Triage Information Reviewed: Yes Vital Signs On Initial Exam: Initial Vitals Temp Pulse Resp BP Pulse Ox 98.0 F 83 17 118/72 96 05/10/18 13:59 05/10/18 13:59 05/10/18 13:59 05/10/18 13:59 05/10/18 13:59 Vital Signs Reviewed: Yes Diagnostics - Vital Signs Vital Signs Temp Pulse Resp BP Pulse Ox 05/10/18 13:59 98.0 F 83 17 118/72 96 - Laboratory Result Diagrams: 05/10/18 14:49 05/10/18 14:49 Lab Statement: Any lab studies that have been ordered have been reviewed, and results considered in the medical decision making process. - Radiology CXR Radiology Interpretation Completed By: Radiologist - CXR reveals, per radiologist, no active cardiopulmonary disease. ED physician has reviewed this radiology report. - EKG 1441 Cardiac Rate: NL EKG Rhythm: Sinus Rhythm - [address] Segment: Normal Chest Pain Course/Dx - Course Assessment/Plan: This patient is a 42 year old F BIBA to [facility] with a chief complaint of L-sided CP that began at approximately 1000 today. The patient rates the pain 2/10 in severity. Symptoms aggravated by deep breaths. Symptoms alleviated by nothing. Patient reports SOB. Patient denies nausea and vomiting. Patient reports that she has similar chest pains approximately every 6 months that resolve on their own. Blood work without any significant abnormality. 2 troponins 4 hours apart 0.00. EKG doesn't show any ST elevation. Chest x-ray shows no acute pathology. In the ED course the patient was given Toradol and the symptoms resolved. Therefore believe that the symptoms are secondary to more noncardiac chest pain. However the patient was discharged home with follow -up with primary care physician for further workup and management. She was given instructions to return to emergency if she develops any other type of chest pain, shreds of breath, palpitations, nausea vomiting. The patient understands and agrees. Patient is hemodynamically stable alert oriented 3. I discussed all the findings and test results with the patient. Patient was instructed to return to the emergency room immediately if any of the symptoms return or worsens. Plan of care was discussed with the patient and understands and agrees. All questions were answered at patient satisfaction. There were no further complaints or concerns. Lung exam before discharge: CTA B/L. Good air exchange. No wheezing or crackles heard. CVS: S1 and S2 present. No murmurs appreciated. Patient is alert and oriented x 3. Patient is hemodynamically stable. Patient will be discharged home with follow up PCP in the next 2-3 days. Cardiac score is equal to 0. - Chest Pain Differential Diagnosis/HQI/PQRI: Acute [place], ACS, Angina, CHF, Chest Wall, GI Disease, Lower Respiratory Infection, Pulmonary Edema - Diagnoses Provider Diagnoses: Atypical chest pain Discharge - Sign-Out/Discharge Documenting (check all that apply): Patient Departure - Discharge home - Discharge Plan Condition: Stable Disposition: HOME Patient Education Materials: Chest Pain (ED) Referrals: Laura Arizmendi MD [Primary Care Provider] - 2 Days Additional Instructions: RETURN TO THE EMERGENCY DEPARTMENT FOR NEW OR WORSENING SYMPTOMS - Billing Disposition and Condition Condition: STABLE Disposition: Home - Attestation Statements Document Initiated by Scribe: Yes Documenting Scribe: Julianna Girard Provider For Whom Cary is Documenting (Include Credential): Monico Shoemaker MD Scribe Attestation: Julianna Langley, scribed for Monico Shoemaker MD on 05/12/18 at 1841. Scribe Documentation Reviewed: Yes Provider Attestation: The documentation as recorded by the Julianna ferreira accurately reflects the service I personally performed and the decisions made by , Monico Shoemaker MD
[2018-05-10 15:02] LABS: ABS Basophils 0 10^3/ul (0-0.2); ABS Eosinophils 0.1 10^3/ul (0-0.6); ABS Lymphocytes 1.7 10^3/ul (1.0-4.8); ABS Monocytes 0.6 10^3/ul (0-0.8); ABS Neutrophils 5.5 10^3/ul (1.5-7.7); ABS Nucleated RBC 0 10^3/ul; Eosinophil % 1.4 % (0-6); Hematocrit 38 % (35-47); Hemoglobin 13.4 g/dl (12.0-16.0); Lymphocyte % 21.4 % (25-47); Mean Corpuscular HGB Conc 35 g/dl (31-36); Mean Corpuscular Hemoglobin 32 pg (27-31); Mean Corpuscular Volume 91 fL (80-97); Mean Platelet Volume 7.3 um3 (7.4-10.4); Nucleated Red Blood Cells % 0.2; Platelet Count 209 10^3/ul (150-450); Red Blood Count 4.21 10^6/ul (4.00-5.40); Red Cell Distribution Width 12 % (10.5-15); White Blood Count 7.9 10^3/ul (3.5-10.8)
[2018-05-10 15:06] LABS: Urine Appearance Cloudy; Urine Blood Negative (Negative); Urine Color Yellow; Urine Ketones Negative (Negative); Urine Protein Negative (Negative); Urine Specific Gravity 1.002 (1.010-1.030); Urine Urobilinogen Negative (Negative)
--- NOTE | 2018-05-10 15:13 | RAD ---
HISTORY: CP COMPARISONS: None VIEWS: 1: frontal AP view of the chest at 3:00 PM FINDINGS: LINES AND TUBES: None. CARDIOMEDIASTINAL SILHOUETTE: The cardiomediastinal silhouette is normal for portable technique. PLEURA: The costophrenic angles are sharp. No pleural abnormalities are noted. LUNG PARENCHYMA: The lungs are clear. ABDOMEN: The upper abdomen is clear. There is no subphrenic gas. BONES AND SOFT TISSUES: No bone or soft tissue abnormalities are noted. IMPRESSION: NO ACTIVE CARDIOPULMONARY DISEASE.
[2018-05-10 15:20] LABS: EGFR Non-African American 63.1 (>60)
[2018-05-10] MEDS ORDERED: Ketorolac INJ* 30 MG/ML 1 ML VIAL IV PUSH ONE (15:55)
[2018-05-10 18:49] VITALS: BP 117/76
== END 2018-05-10 18:48 | disposition home or self-care (01) ==
LOC: ED 13:56
DX: R07.89 Other chest pain (principal); Z88.8 Allergy status to other drugs, medicaments and biological substances; Z87.891 Personal history of nicotine dependence
CPT/HCPCS: 36415; 71045; 80053; 81003; 82550; 82553; 83605; 83735; 83880; 84443; 84484; 84702; 85025; 85379; 93005; 96374; 99284; J1885

== ENCOUNTER 2018-05-11 15:14 | Emergency (ER) | payer MEDICARE, MEDICAID ==
--- NOTE | 2018-05-11 15:52 | ED ---
HPI Chest Pain - HPI Summary HPI Summary: The pt is a 42 y/o female presenting to [facility] c/o L sided CP under the breast, since yesterday worsened today. The aching pain rated 4/10 in severity is aggravated by breathing. She was seen yesterday at [facility] for the same sx and called her PCP today morning , who referred her to the ED. - History of Current Complaint Chief Complaint: EDChestPainROMI Time Seen by Provider: 05/11/18 15:39 Hx Obtained From: Patient Hx Last Menstrual Period: 05/10/13 Onset/Duration: Still Present, Worse Since - Today morning Current Severity: Mild Pain Intensity: 4 Pain Scale Used: 0-10 Numeric Chest Pain Location: Diffuse - Under the L breast Aggravating Factor(s): Deep Breaths Associated Signs and Symptoms: Positive: Chest Pain - Additional Pertinent History Primary Care Physician: ELENO - Allergy/Home Medications Allergies/Adverse Reactions: Allergies Allergy/AdvReac Type Severity Reaction Status Date / Time MS Aripiprazole Allergy Itching Verified 05/03/16 19:24 [From [facility]] control pills Allergy Unknown Uncoded 05/03/16 19:24 Reaction Details PMH/Surg Hx/FS Hx/Imm Hx Previously Healthy: No Endocrine/Hematology History: Denies: Hx Diabetes, Hx Thyroid Disease Cardiovascular History: Denies: Hx Hypertension Respiratory History: Reports: Hx Asthma - IN CHILDHOOD Denies: Hx Chronic Obstructive Pulmonary Disease (COPD) GI History: Denies: Hx Ulcer Musculoskeletal History: Denies: Hx Arthritis Sensory History: Reports: Hx Contacts or Glasses Denies: Hx Hearing Aid Opthamlomology History: Reports: Hx Contacts or Glasses Psychiatric History: Reports: Hx Anxiety, Hx Depression, Hx Inpatient Treatment , Hx Community Mental Health Tx, Hx Schizophrenia - SCHIZOAFFECTIVE D/O, BIPOLAR TYPE, Hx Bipolar Disorder, Other Psychiatric Issues/Disorders - SCHIZOAFFECTIVE D/O Denies: Hx Attention Deficit Hyperactivity Disorder, Hx Eating Disorder, Hx Panic Disorder, Hx Post Traumatic Stress Disorder, Hx Suicide Attempt, Hx of Violent Episodes Against Others, Hx Substance Abuse - Cancer History Hx Chemotherapy: No Hx Radiation Therapy: No - Immunization History Date of Tetanus Vaccine: UTD Date of Influenza Vaccine: 2015 Infectious Disease History: No Infectious Disease History: Denies: Hx Clostridium Difficile, Hx Hepatitis, Hx Human Immunodeficiency Virus (HIV), Hx of Known/Suspected MRSA, Hx Shingles, Hx Tuberculosis, Traveled Outside the US in Last 30 Days - Family History Known Family History: Positive: Cardiac Disease - [place] - father at 49, Other - Bipolar disorder Family History: Bipolar D/o - Social History Occupation: Unemployed, Disabled Lives: Alone Alcohol Use: None Alcohol Amount: UNKNOWN Hx Substance Use: No Substance Use Type: Reports: None Hx Tobacco Use: Yes - daily Smoking Status (MU): Former Smoker Type: Cigarettes Amount Used/How Often: 2 ppd Length of Time of Smoking/Using Tobacco: 26 years Have You Smoked in the Last Year: Yes Review of Systems Negative: Fever Positive: Chest Pain All Other Systems Reviewed And Are Negative: Yes Physical Exam - Summary Physical Exam Summary: Appearance: The patient is well-nourished in no acute distress and in no acute pain. Skin: The skin is warm and dry and skin color reflects adequate perfusion. HEENT: The head is normocephalic and atraumatic. The pupils are equal and reactive. The conjunctivae are clear and without drainage. Nares are patent and without drainage. Mouth reveals moist mucous membranes and the throat is without erythema and exudate. The external ears are intact. The ear canals are patent and without drainage. The tympanic membranes are intact. Neck: The neck is supple with full range of motion and non-tender. There are no carotid bruits. There is no neck vein distension. Respiratory: Chest is non-tender. Lungs are clear to auscultation and breath sounds are symmetrical and equal. Cardiovascular: Heart is regular rate and rhythm. There is no murmur or rub auscultated. There is no peripheral edema and pulses are symmetrical and equal. Abdomen: The abdomen is soft and non-tender. There are normal bowel sounds heard in all four quadrants and there is no organomegaly palpated. Musculoskeletal: There is no back tenderness noted. Extremities are non-tender with full range of motion. There is good capillary refill. There is no peripheral edema or calf tenderness elicited. Neurological: Patient is alert and oriented to person, place and time. The patient has symmetrical motor strength in all four extremities. Cranial nerves are grossly intact. Deep tendon reflexes are symmetrical and equal in all four extremities. Triage Information Reviewed: Yes Vital Signs On Initial Exam: Initial Vitals Temp Pulse Resp BP Pulse Ox 98.8 F 86 16 118/67 97 05/11/18 15:21 10/01/18 15:21 05/11/18 15:21 05/11/18 15:21 05/11/18 15:21 Vital Signs Reviewed: Yes Diagnostics - Vital Signs Vital Signs Temp Pulse Resp BP Pulse Ox 05/11/18 15:21 98.8 F 86 16 118/67 97 - Laboratory Lab Statement: Any lab studies that have been ordered have been reviewed, and results considered in the medical decision making process. Chest Pain Course/Dx - Course Course Of Treatment: Ms. Philip was seen here in the emergency department yesterday for left-sided chest pain which was worked up with x-ray and labs including a delayed troponin and d-dimer and EKG. She was discharged to follow up with her PCP however when she called the office today they recommended she come to the emergency department. She states that nothing has changed since yesterday which she continues to have the pain although it is milder. A single troponin is still 0 as it was yesterday. As yesterday I have a low index suspicion for anything serious occurring and recommended that she use ibuprofen and follow-up - Diagnoses Provider Diagnoses: Chest pain Discharge - Sign-Out/Discharge Documenting (check all that apply): Patient Departure - DC - Discharge Plan Condition: Stable Disposition: HOME Patient Education Materials: Chest Pain (ED) Referrals: Laura Arzimendi MD [Primary Care Provider] - 3 Days Additional Instructions: Return to ED for any new or worsening symptoms - Billing Disposition and Condition Condition: STABLE Disposition: Home - Attestation Statements Document Initiated by Scribe: Yes Documenting Scribe: Yue Rubin Provider For Whom Cary is Documenting (Include Credential): Dr. Juan Montez MD Scribe Attestation: Yue Langley , scribed for Dr. uJan Montez MD on 05/11/18 at 2133. Scribe Documentation Reviewed: Yes Provider Attestation: The documentation as recorded by the Yue ferreira accurately reflects the service I personally performed and the decisions made by me, Dr. Juan Montez MD
[2018-05-11 17:04] VITALS: BP 122/61
== END 2018-05-11 17:03 | disposition home or self-care (01) ==
LOC: ED 15:14
DX: R07.9 Chest pain, unspecified (principal); Z87.891 Personal history of nicotine dependence
CPT/HCPCS: 36415; 84484; 99282

== ENCOUNTER 2019-07-11 17:15 | Inpatient (IN) | payer BC, MEDICAID ==
--- NOTE | 2019-07-11 17:39 | ED ---
Psychiatric Complaint - HPI Summary HPI Summary: The patient is a 43 y/o F arriving by ambulance to [facility] with a chief complaint of confusion that has resolved. EMS reports that she was found wandering outside in the elements by police, so they took her home. They re-checked on her later, and they found her to still be slightly confused while sitting in the entrance of her home, warranting their call to EMS to bring her here. In the ED, she is alert and oriented, and she does not have any complaints. She denies any fevers, chills, cough, suicidal ideations, or homicidal ideations. PMHx: asthma, anxiety, depression, inpatient treatment, schizophrenia, bipolar disorder. FHx: bipolar disorder. Former smoker, no EtOH, no substance use. Medications reviewed. Allergies noted. - History Of Current Complaint Time Seen by Provider: 07/11/19 17:19 Hx Obtained From: Patient Hx Last Menstrual Period: 05/10/13 Onset/Duration: Resolved - confusion Timing: Hours Severity Initially: Moderate Severity Currently: None Aggravating Factor(s): Nothing Alleviating Factor(s): Nothing Associated Signs And Symptoms: Positive: Confused Related History: Positive For: Prior Psychiatric Issues - anxiety, depression, schizophrenia, bipolar disorder Has Suicidal: Denies: Thoughts Has Homicidal: Denies: Thoughts - Allergies/Home Medications Allergies/Adverse Reactions: Allergies Allergy/AdvReac Type Severity Reaction Status Date / Time aripiprazole [From [facility]] Allergy Itching Verified 07/11/19 22:02 control pills Allergy Unknown Uncoded 07/11/19 22:02 Reaction Details Home Medications: Home Medications Quetiapine Fumarate [Quetiapine Fumarate ER] 300 mg PO DAILY 07/11/19 [History Confirmed 07/11/19] PMH/Surg Hx/FS Hx/Imm Hx Endocrine/Hematology History: Denies: Hx Diabetes, Hx Thyroid Disease Cardiovascular History: Denies: Hx Hypercholesterolemia, Hx Hypertension Respiratory History: Reports: Hx Asthma - IN CHILDHOOD Denies: Hx Chronic Obstructive Pulmonary Disease (COPD) GI History: Denies: Hx Ulcer Musculoskeletal History: Denies: Hx Arthritis Sensory History: Reports: Hx Contacts or Glasses Denies: Hx Hearing Aid Opthamlomology History: Reports: Hx Contacts or Glasses Psychiatric History: Reports: Hx Anxiety, Hx Depression, Hx Inpatient Treatment , Hx Community Mental Health Tx, Hx Schizophrenia - SCHIZOAFFECTIVE D/O, BIPOLAR TYPE, Hx Bipolar Disorder, Other Psychiatric Issues/Disorders - SCHIZOAFFECTIVE D/O Denies: Hx Attention Deficit Hyperactivity Disorder, Hx Eating Disorder, Hx Panic Disorder, Hx Post Traumatic Stress Disorder, Hx Suicide Attempt, Hx of Violent Episodes Against Others, Hx Substance Abuse - Cancer History Hx Chemotherapy: No Hx Radiation Therapy: No - Surgical History Surgical History: None Surgery Procedure, Year, and Place: none - Immunization History Date of Tetanus Vaccine: UTD Date of Influenza Vaccine: 2015 Infectious Disease History: Denies: Hx Clostridium Difficile, Hx Hepatitis, Hx Human Immunodeficiency Virus (HIV), Hx of Known/Suspected MRSA, Hx Shingles, Hx Tuberculosis - Family History Known Family History: Positive: Cardiac Disease - [place] - father at 49, Other - Bipolar disorder Family History: Bipolar D/o - Social History Alcohol Use: None Hx Substance Use: No Substance Use Type: Reports: None Hx Tobacco Use: Yes - daily Smoking Status (MU): Former Smoker Type: Cigarettes Amount Used/How Often: 2 ppd Length of Time of Smoking/Using Tobacco: 26 years Have You Smoked in the Last Year: Yes Review of Systems Negative: Fever, Chills Negative: Cough Psychological: Other - confusion Negative: Other - suicidal or homicidal ideations All Other Systems Reviewed And Are Negative: Yes Physical Exam - Summary Physical Exam Summary: VITAL SIGNS: Reviewed. GENERAL: Patient is a well-developed and nourished female who is lying comfortable in the stretcher. Patient is not in any acute respiratory distress. Unkempt in appearance, poor hygiene. HEAD AND FACE: No signs of trauma. No ecchymosis, hematomas or skull depressions. No sinus tenderness. EYES: PERRLA, EOMI x 2, No injected conjunctiva, no nystagmus. EARS: Hearing grossly intact. Ear canals and tympanic membranes are within normal limits. MOUTH: Oropharynx within normal limits. NECK: Supple, trachea is midline, no adenopathy, no JVD, no carotid bruit, no c- spine tenderness, neck with full ROM. CHEST: Symmetric, no tenderness at palpation. LUNGS: Clear to auscultation bilaterally. No wheezing or crackles. CVS: Regular rate and rhythm, S1 and S2 present, no murmurs or gallops appreciated. ABDOMEN: Soft, non-tender. No signs of distention. No rebound, no guarding, and no masses palpated. Bowel sounds are normal. EXTREMITIES: FROM in all major joints, no edema, no cyanosis or clubbing. NEURO: Alert and oriented x 3. No acute neurological deficits. Speech is normal and follows commands. SKIN: Dry and warm. PSYCH: Depressed, quiet, and denies any suicidal thoughts or plan. No homicidal thoughts or plan. No signs of psychosis or pressure speech. No tangential speech. Triage Information Reviewed: Yes Vital Signs Reviewed: Yes Procedures - Sedation Patient Received Moderate/Deep Sedation with Procedure: No Diagnostics - Laboratory Result Diagrams: 07/11/19 17:40 07/11/19 17:40 Lab Statement: Any lab studies that have been ordered have been reviewed, and results considered in the medical decision making process. Re-Evaluation - Re-Evaluation First Eval Re-Evaluation Time: 18:35 Comment: Patient is medically clear for mental health evaluation. Course/Dx - Course Assessment/Plan: The patient is a 43 y/o F arriving by ambulance to [facility] with a chief complaint of confusion that has resolved. EMS reports that she was found wandering outside in the elements by police, so they took her home. They re-checked on her later, and they found her to still be slightly confused while sitting in the entrance of her home, warranting their call to EMS to bring her here. In the ED, she is alert and oriented, and she does not have any complaints. She denies any fevers, chills, cough, suicidal ideations, or homicidal ideations. PMHx: asthma, anxiety, depression, inpatient treatment, schizophrenia, bipolar disorder. FHx: bipolar disorder. Former smoker, no EtOH, no substance use. Blood work w/o a significant abnormality. She is medically cleared. She is awaiting a MHE. Patient is hemodynamically stable and A+O x 3. Patient will be signed out to Dr. Vincent at shift change. - Differential Dx/Clinical Impression Differential Diagnosis/HQI/PQRI: Positive: Bipolar Disorder, Depression Provider Diagnosis: Schizoaffective disorder Discharge ED - Sign-Out/Discharge Documenting (check all that apply): Sign-Out Patient Signing out patient TO: Whitney Vincent - Patient is a sign-out to Dr. Whitney Vincent MD, at change of shift at 1900 on 07/11/19, pending mental health evaluation and disposition. - Discharge Plan Condition: Stable Disposition: [facility]IATRIC FACILITY[facility] - Attestation Statements Document Initiated by Cary: Yes Documenting Scribe: Luna Bains Provider For Whom Cary is Documenting (Include Credential): Dr. Monico Shoemaker MD Scribe Attestation: Luna Langley, scribed for Dr. Monico Shoemaker MD on 07/12/19 at 0947. Scribe Documentation Reviewed: Yes Provider Attestation: The documentation as recorded by the Luna ferreira accurately reflects the service I personally performed and the decisions made by me, Dr. Monico Shoemaker MD Status of Scribe Document: Viewed
[2019-07-11 17:56] LABS: ABS Lymphocytes 1.2 10^3/ul (1.0-4.8); ABS Monocytes 0.6 10^3/ul (0-0.8); ABS Neutrophils 6.1 10^3/ul (1.5-7.7); Eosinophil % 0.6 %; Hematocrit 41 % (35-47); Hemoglobin 14.8 g/dL (12.0-16.0); Lymphocyte % 15.4 %; Mean Corpuscular HGB Conc 36 g/dL (31-36); Mean Corpuscular Hemoglobin 33 pg (27-31); Mean Corpuscular Volume 93 fL (80-97); Mean Platelet Volume 8.1 fL (7.4-10.4); Platelet Count 262 10^3/uL (150-450); Red Blood Count 4.43 10^6 /uL (3.70-4.87); Red Cell Distribution Width 12 % (10-15)
[2019-07-11 18:00] LABS: Urine Appearance Cloudy; Urine Bilirubin Negative (Negative); Urine Blood Negative (Negative); Urine Color Amber; Urine Glucose Negative (Negative); Urine Ketones 1+ (Negative); Urine Nitrite Negative (Negative); Urine Protein 1+(30 mg/dL) (Negative); Urine Specific Gravity 1.031 (1.010-1.030); Urine Urobilinogen Negative (Negative)
[2019-07-11 18:06] LABS: ALT 17 U/L (7-52); AST 20 U/L (13-39); Albumin 4.7 g/dL (3.2-5.2); Albumin/Globulin Ratio 1.7 (1-3); Alkaline Phosphatase 73 U/L (34-104); Anion Gap 8 mmol/L (2-11); BUN/Creatinine Ratio 15.1 (8-20); Blood Urea Nitrogen 13 mg/dL (6-24); CO2 Carbon Dioxide 24 mmol/L (22-32); Calcium 9.7 mg/dL (8.6-10.3); Chloride 106 mmol/L (101-111); EGFR African American 86.3 (>60); EGFR Non-African American 71.4 (>60); Globulin 2.7 g/dL (2-4); Glucose 98 mg/dL (70-100); Potassium 3.6 mmol/L (3.5-5.0); Sodium 138 mmol/L (135-145); Total Protein 7.4 g/dL (6.4-8.9)
[2019-07-11 18:07] LABS: Creatine Kinase 433 U/L (10-223)
[2019-07-11 18:07] LABS: Urine Benzodiazepine Screen None Detected (None Detect); Urine Opiates Screen None Detected (None Detect)
[2019-07-11 18:12] LABS: Acetaminophen < 15 mcg/mL; Alcohol < 10 mg/dL (<10); Salicylate < 2.50 mg/dL (<30)
[2019-07-11 18:13] LABS: HCG Pregnancy < 0.60 mIU/mL
[2019-07-11 18:28] LABS: TSH (Thyroid Stimulating Horm) 2.92 mcIU/mL (0.34-5.60)
[2019-07-11 18:34] LABS: Urine Bacteria 1+ (Absent); Urine Red Blood Cell 1+(3-5/hpf) (Absent); Urine Squamous Epithelial Cell Present (Absent); Urine White Blood Cell Trace(0-5/hpf) (Absent)
--- NOTE | 2019-07-11 19:10 | ED ---
Progress - Progress Note Progress Note: Patient is received as a sign-out from Dr. Shoemaker to Dr. Vincent at 1900 07/11/19 shift change pending MHE and disposition of this mental health patient. 2252 - Patient's case was reviewed by psychiatrist. Patient will be admitted to [facility] psych. Benadryl 25 mg and Haldol 5 mg to be administered. Re-Evaluation - Re-Evaluation First Eval Re-Evaluation Time: 18:35 Comment: Patient is medically clear for mental health evaluation. Course/Dx - Course Course Of Treatment: Benadryl 25 mg and Haldol 5 mg administered. - Diagnoses Provider Diagnoses: Schizoaffective disorder - Provider Notifications Discussed Care Of Patient With: Chelsie Dejesus Time Discussed With Above Provider: 22:53 Instructed by Provider To: Other - 2252 - Patient's case was reviewed by Dr. Dejesus. Patient will be admitted to [facility] psych. Benadryl 25 mg and Haldol 5 mg to be administered. Discharge ED - Sign-Out/Discharge Documenting (check all that apply): Patient Departure - admit, Receiving Sign- Out Receiving patient FROM: Monico Shoemaker - Discharge Plan Condition: Stable Disposition: PSYCHIATRIC FACILITY-[facility] - Billing Disposition and Condition Condition: STABLE Disposition: Psychiatric Facility [facility] - Attestation Statements Document Initiated by Analisaibe: Yes Documenting Scribe: VERONICA SALAZAR Provider For Whom Cary is Documenting (Include Credential): WOLF VINCENT MD Scribe Attestation: VERONICA Langley, scribed for WOLF VINCENT MD on 07/12/19 at 0253. Scribe Documentation Reviewed: Yes Provider Attestation: The documentation as recorded by the analisaibVERONICA hightower accurately reflects the service I personally performed and the decisions made by me, WOLF VINCENT MD Status of Scribe Document: Viewed
[2019-07-11] MEDS ORDERED: Haloperidol TAB* 5 MG PO ONE (22:55)
[2019-07-11] MEDS ORDERED: diPHENhydraMINE PO* 25 MG PO ONE (22:55)
[2019-07-12] MEDS ORDERED: Acetaminophen TAB* 325 MG PO PRN (01:13)
[2019-07-12] MEDS ORDERED: Nicotine* 2MG (FRUIT FLAVOR) GUM PO PRN (01:13)
[2019-07-12] MEDS ORDERED: Al Hydrox/Mg Hydrox/Simet LIQ* 30 ML UDC PO PRN (01:13)
[2019-07-12] MEDS: Vitamin THERAPEUTIC TAB PO SCH (09:32)
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
[2019-07-12] MEDS: Nicotine PATCH 21 MG/24 HR* PATCH TRANSDERM SCH (11:02)
[2019-07-12] MEDS ORDERED: hydrOXYzine HCL TAB* 25 MG PO PRN (15:06)
[2019-07-12] MEDS ORDERED: OLANzapine TAB*ODT* 10 MG TAB PO PRN (15:07)
[2019-07-12] MEDS: Nicotine Patch Removal NOTE PATCH OFF SCH (19:15)
[2019-07-12] MEDS ORDERED: QUEtiapine TAB* 100 MG PO SCH (21:00)
[2019-07-13] MEDS: Vitamin THERAPEUTIC TAB PO SCH (07:45)
[2019-07-13] MEDS: Nicotine PATCH 21 MG/24 HR* PATCH TRANSDERM SCH (07:45)
[2019-07-13 08:36] LABS: HDL Cholesterol 41.7 mg/dL
--- NOTE | 2019-07-13 11:57 | PN ---
Subjective - Subjective Date of Service: 07/13/19 Service Type: 19642 Hosp care 35 min high complexity Subjective: Nursing Report: Patient was visible on unit, refusing medications, unable to follow re- direction. CC: "I do not want to take medications." Patient refusing to take long acting injections stating that she doesnt need medications. She refused to change clothing due to blood on her pants. Patient was seen and evaluated today in the common room. The patient walked away on several occasions during the encounter. Objective - General Observations Appearance: Malodorous Appears Stated Age: Yes Stature: WNL Posture: Tense Eye Contact: Avoidant Behavior/Activity: Peculiar - Interaction Observations Attitude Towards Examiner: Mistrustful Stated Mood: Irritable Affect: Restricted Speech Pattern/Tone: Normal Volume Thought Process: Loose Associations Perception: Derealization Thought Content: Paranoid Thought Process: Lethality: Paranoid Ideation Hallucination Type: Denies Delusion Type: Control, Somatic - Cognitive Function Orientation: A&O x 4 Level of Consciousness: Awake Ability to Make Reasonable Decisions: Serverely Impaired - Medication Compliance Cooperative with Inpatient Medication Regimen: Partial - Group Participation Participates in Group Activities: Partial Assessment - Assessment Merits Inpatient Hospitalization: For Immediate Safety Clinical Impression: 43 year old female with history of Schizoaffective disorder bipolar type came to the hospital by police with disorganized thinking and behavior and non compliant with medication and was admitted to the BSU at [facility]. Plan - Plan Treatment Plan: Name: ALICE KENNEY Birthdate: 1975 [id number] #Q15 minute observation. Staff informed of elopement precautions # The patient requires psychiatric inpatient admission at this time to assure safety, receive treatment and work toward stabilization. # Obtain collateral information once release is signed. # Collaboration with Social Work # Patient would benefit from ACT referral # Increase seroquel 300mg qhs #Plan to give Invega sustenna 234mg long acting injection to increase compliance. # TOO if patient continues to refuse treatment Tobacco use disorder: nicotine supplement offered and put in place. #Goals before discharge include: psychiatric stabilization Tentative Discharge: Pending psychiatric stabilization Continued Medication Management: Continue Outpt Medication Medications: Current Medications Acetaminophen (Tylenol Tab*) 650 mg PO Q4H PRN PRN Reason: PAIN or TEMP > 101 F Al Hydrox/Mg Hydrox/Simethicone (Maalox Plus*) 30 ml PO Q4H PRN PRN Reason: INDIGESTION Hydroxyzine HCl (Atarax Tab*) 25 mg PO Q6H PRN PRN Reason: ANXIETY Last Admin: 07/13/19 10:43 Dose: 25 mg Multivitamins (Theragran Tab*) 1 tab PO DAILY [facility] Last Admin: 07/13/19 07:45 Dose: Not Given Nicotine (Nicotine Patch 21 Mg/24 Hr*) 1 patch TRANSDERM DAILY [facility] Last Admin: 07/13/19 07:45 Dose: Not Given Nicotine Polacrilex (Nicotine Gum*) 2 mg PO Q2H PRN PRN Reason: CRAVINGS Olanzapine (Zyprexa *Odt*) 10 mg PO Q6H PRN PRN Reason: AGITATION Last Admin: 07/13/19 10:43 Dose: 10 mg Pharmacy Profile Note (Nicotine Patch Removal Note*) 1 note PATCH OFF 2100 [facility] Last Admin: 07/12/19 19:15 Dose: Not Given Quetiapine Fumarate (Seroquel Tab*) 300 mg PO BEDTIME [facility] - Discharge Plan Discharge Plan: Inpatient Hospitalization
[2019-07-13] MEDS: Nicotine Patch Removal NOTE PATCH OFF SCH (23:58)
[2019-07-13] MEDS: QUEtiapine TAB* 100 MG PO SCH (23:58)
[2019-07-14] MEDS ORDERED: Paliperidone SUSTENNA* 234 MG/1.5 ML IM ONE (09:00)
--- NOTE | 2019-07-14 09:46 | PN ---
Subjective - Subjective Date of Service: 07/14/19 Service Type: 16908 Hosp care 35 min high complexity Subjective: Nursing Report: Patient was visible on unit, ate breakfast . Slept overnight. CC: "Fine Patient was seen and evaluated today in the common room. She was seen eating breakfast this morning and reported sleeping last night. She changed out of her pants he patient reported she feels safe on the unit and is interacting with peers. Yesterday attempted to elope from unit. Patient reported that she doesnt want to work with the ACT team because she doesnt like to be around people once a week. Patient unable to identify sources of support in her life. She is receptive to getting invega injection today. Objective - General Observations Appears Stated Age: Yes Stature: WNL Posture: Slumped Eye Contact: Avoidant Behavior/Activity: Peculiar - Interaction Observations Attitude Towards Examiner: Mistrustful Stated Mood: Irritable Affect: Incongruent Speech Pattern/Tone: Normal Volume Thought Process: Loose Associations Perception: Depersonalization Thought Content: Paranoid Thought Process: Lethality: Paranoid Ideation Hallucination Type: Denies Delusion Type: Thought Broadcasting - Cognitive Function Orientation: A&O x 4 Level of Consciousness: Awake Judgment Within Normal Limits: No Ability to Make Reasonable Decisions: Serverely Impaired - Medication Compliance Cooperative with Inpatient Medication Regimen: Partial - Group Participation Participates in Group Activities: No Assessment - Assessment Merits Inpatient Hospitalization: For Immediate Safety Clinical Impression: 43 year old female with history of Schizoaffective disorder bipolar type came to the hospital by police with disorganized thinking and behavior and non compliant with medication and was admitted to the BSU at [facility]. Plan - Plan Treatment Plan: Name: ALICE KENNEY Birthdate: 1975 [id number] #Q15 minute observation. Staff informed of elopement precautions # The patient requires psychiatric inpatient admission at this time to assure safety, receive treatment and work toward stabilization. # Obtain collateral information once release is signed. # Collaboration with Social Work # Patient would benefit from ACT referral however at this time refuses to comply with ACT services # Continue seroquel 300mg qhs #Plan to give Invega sustenna 234mg long acting injection to increase compliance. #Patient on 2 anti-psychotics and will plan to be tapered to mono therapy # TOO if patient continues to refuse treatment Tobacco use disorder: nicotine supplement offered and put in place. #Goals before discharge include: psychiatric stabilization Tentative Discharge: Pending psychiatric stabilization Sodium 138 mmol/L (135-145) 07/11/19 17:40 Potassium 3.6 mmol/L (3.5-5.0) 07/11/19 17:40 BUN 13 mg/dL (6-24) 07/11/19 17:40 Creatinine 0.86 mg/dL (0.51-0.95) 07/11/19 17:40 Hemoglobin A1c 4.7 % (4.0-5.6) 07/13/19 07:59 Calcium 9.7 mg/dL (8.6-10.3) 07/11/19 17:40 AST 20 U/L (13-39) 07/11/19 17:40 ALT 17 U/L (7-52) 07/11/19 17:40 Triglycerides 162 mg/dL 07/13/19 07:59 Cholesterol 154 mg/dL 07/13/19 07:59 LDL Cholesterol 80 mg/dL 07/13/19 07:59 Continued Medication Management: Continue Outpt Medication Medications: Current Medications Acetaminophen (Tylenol Tab*) 650 mg PO Q4H PRN PRN Reason: PAIN or TEMP > 101 F Al Hydrox/Mg Hydrox/Simethicone (Maalox Plus*) 30 ml PO Q4H PRN PRN Reason: INDIGESTION Hydroxyzine HCl (Atarax Tab*) 25 mg PO Q6H PRN PRN Reason: ANXIETY Last Admin: 07/13/19 10:43 Dose: 25 mg Multivitamins (Theragran Tab*) 1 tab PO DAILY [facility] Last Admin: 07/13/19 07:45 Dose: Not Given Nicotine (Nicotine Patch 21 Mg/24 Hr*) 1 patch TRANSDERM DAILY [facility] Last Admin: 07/13/19 07:45 Dose: Not Given Nicotine Polacrilex (Nicotine Gum*) 2 mg PO Q2H PRN PRN Reason: CRAVINGS Olanzapine (Zyprexa *Odt*) 10 mg PO Q6H PRN PRN Reason: AGITATION Last Admin: 07/13/19 10:43 Dose: 10 mg Paliperidone Palmitate (Invega Sustenna*) 156 mg IM ONCE ONE Stop: 07/19/19 08:44 Pharmacy Profile Note (Nicotine Patch Removal Note*) 1 note PATCH OFF 2099 [facility] Last Admin: 07/13/19 23:58 Dose: Not Given Quetiapine Fumarate (Seroquel Tab*) 300 mg PO BEDTIME [facility] Last Admin: 07/13/19 23:58 Dose: Not Given - Discharge Plan Discharge Plan: Inpatient Hospitalization Outpatient Program: [facility]
[2019-07-14] MEDS: Nicotine PATCH 21 MG/24 HR* PATCH TRANSDERM SCH (12:55)
[2019-07-14] MEDS: Vitamin THERAPEUTIC TAB PO SCH (12:55)
[2019-07-14] MEDS: Nicotine Patch Removal NOTE PATCH OFF SCH (21:47)
[2019-07-14] MEDS: QUEtiapine TAB* 100 MG PO SCH ×2 (21:47→23:26)
[2019-07-15] MEDS: Nicotine PATCH 21 MG/24 HR* PATCH TRANSDERM SCH (09:50)
[2019-07-15] MEDS: Vitamin THERAPEUTIC TAB PO SCH (09:50)
--- NOTE | 2019-07-15 11:33 | PN ---
Subjective - Subjective Date of Service: 07/15/19 Service Type: 59898 Hosp care 35 min high complexity Subjective: Nursing Report: Patient was visible on unit, ate breakfast. Slept overnight. CC: "Okay Patient was seen and evaluated today in the common room. She was seen eating lunch with peers. She reported that her sleep is better. She denied people following her or out to get her. She is in agreement with working with the ACT team. Objective - General Observations Appearance: Disheveled Appears Stated Age: Yes Stature: WNL Posture: Slumped Eye Contact: Avoidant Behavior/Activity: Peculiar - Interaction Observations Attitude Towards Examiner: Evasive Stated Mood: Irritable Affect: Restricted Speech Pattern/Tone: Normal Volume Thought Process: Loose Associations Perception: Depersonalization Thought Content: Phobic Hallucination Type: Denies Delusion Type: Thought Insertion - Cognitive Function Orientation: A&O x 4 Level of Consciousness: Awake - Medication Compliance Cooperative with Inpatient Medication Regimen: Yes - Group Participation Participates in Group Activities: No Assessment - Assessment Merits Inpatient Hospitalization: For Immediate Safety Clinical Impression: 43 year old female with history of Schizoaffective disorder bipolar type came to the hospital by police with disorganized thinking and behavior and non compliant with medication and was admitted to the BSU at [facility]. Plan - Plan Treatment Plan: Name: ALICE KENNEY Birthdate: 1975 [id number] #Q30 minute observation. # The patient requires psychiatric inpatient admission at this time to assure safety, receive treatment and work toward stabilization. # Obtain collateral information once release is signed. # Collaboration with Social Work # ACT referral - patient is now willing to work with the ACT team. # Continue seroquel 300mg qhs #Patient received 234mg of Invega sustenna on 07/14/19 without complication and will plan to receive 156mg on 07/19/19 #Patient on 2 anti-psychotics and due to failure multiple failures of anti psychotic monotherapy Tobacco use disorder: nicotine supplement offered and put in place. #Goals before discharge include: psychiatric stabilization Tentative Discharge: Pending psychiatric stabilization Sodium 138 mmol/L (135-145) 07/11/19 17:40 Potassium 3.6 mmol/L (3.5-5.0) 07/11/19 17:40 BUN 13 mg/dL (6-24) 07/11/19 17:40 Creatinine 0.86 mg/dL (0.51-0.95) 07/11/19 17:40 Hemoglobin A1c 4.7 % (4.0-5.6) 07/13/19 07:59 Calcium 9.7 mg/dL (8.6-10.3) 07/11/19 17:40 AST 20 U/L (13-39) 07/11/19 17:40 ALT 17 U/L (7-52) 07/11/19 17:40 Triglycerides 162 mg/dL 07/13/19 07:59 Cholesterol 154 mg/dL 07/13/19 07:59 LDL Cholesterol 80 mg/dL 07/13/19 07:59 Continued Medication Management: Continue Outpt Medication Medications: Current Medications Acetaminophen (Tylenol Tab*) 650 mg PO Q4H PRN PRN Reason: PAIN or TEMP > 101 F Al Hydrox/Mg Hydrox/Simethicone (Maalox Plus*) 30 ml PO Q4H PRN PRN Reason: INDIGESTION Hydroxyzine HCl (Atarax Tab*) 25 mg PO Q6H PRN PRN Reason: ANXIETY Last Admin: 07/13/19 10:43 Dose: 25 mg Multivitamins (Theragran Tab*) 1 tab PO DAILY [facility] Last Admin: 07/15/19 09:50 Dose: Not Given Nicotine (Nicotine Patch 21 Mg/24 Hr*) 1 patch TRANSDERM DAILY [facility] Last Admin: 07/15/19 09:50 Dose: Not Given Nicotine Polacrilex (Nicotine Gum*) 2 mg PO Q2H PRN PRN Reason: CRAVINGS Olanzapine (Zyprexa *Odt*) 10 mg PO Q6H PRN PRN Reason: AGITATION Last Admin: 07/13/19 10:43 Dose: 10 mg Paliperidone Palmitate (Invega Sustenna*) 156 mg IM ONCE ONE Stop: 07/19/19 08:44 Pharmacy Profile Note (Nicotine Patch Removal Note*) 1 note PATCH OFF 2100 [facility] Last Admin: 07/14/19 21:47 Dose: Not Given Quetiapine Fumarate (Seroquel Tab*) 300 mg PO BEDTIME [facility] Last Admin: 07/14/19 23:26 Dose: 300 mg - Discharge Plan Discharge Plan: Inpatient Hospitalization
[2019-07-15] MEDS: QUEtiapine TAB* 100 MG PO SCH (23:22)
[2019-07-15] MEDS: Nicotine Patch Removal NOTE PATCH OFF SCH (23:24)
[2019-07-16] MEDS: Vitamin THERAPEUTIC TAB PO SCH (09:06)
[2019-07-16] MEDS: Nicotine PATCH 21 MG/24 HR* PATCH TRANSDERM SCH (09:06)
--- NOTE | 2019-07-16 12:28 | PN ---
Subjective - Subjective Date of Service: 07/16/19 Service Type: 40380 Hosp care 35 min high complexity Subjective: Nursing Report: Patient was visible on unit, no behavioral incidents. Slept overnight. CC: "Good Patient was seen and evaluated today in the common room. The patient reported she doesnt want to go to the [facility] and will work with the ACT team. She reported having adequate appetite and sleep. Per nursing no behavioral issues or overnight events reported. Patient reported that she is tolerating medications without side effects. Objective - General Observations Appearance: Disheveled Appears Stated Age: Yes Stature: WNL Posture: WNL Eye Contact: Average Behavior/Activity: WNL - Interaction Observations Attitude Towards Examiner: Cooperative Stated Mood: Irritable Affect: Restricted Speech Pattern/Tone: Normal Volume Thought Process: Coherent Perception: WNL Thought Content: WNL Hallucination Type: Denies Delusion Type: Denies - Cognitive Function Orientation: A&O x 4 Level of Consciousness: Awake - Medication Compliance Cooperative with Inpatient Medication Regimen: Yes - Group Participation Participates in Group Activities: No Assessment - Assessment Merits Inpatient Hospitalization: For Immediate Safety Clinical Impression: 43 year old female with history of Schizoaffective disorder bipolar type came to the hospital by police with disorganized thinking and behavior and non compliant with medication and was admitted to the BSU at [facility]. Plan - Plan Treatment Plan: Name: ALICE KENNEY Birthdate: 1975 [id number] #Q30 minute observation. # The patient requires psychiatric inpatient admission at this time to assure safety, receive treatment and work toward stabilization. # Obtain collateral information once release is signed. # Collaboration with Social Work # ACT referral - patient is now willing to work with the ACT team. # Continue seroquel 300mg qhs #Patient received 234mg of Invega sustenna on 07/14/19 without complication and will plan to receive 156mg on 07/19/19 #Patient on 2 anti-psychotics and due to failure multiple failures of anti psychotic monotherapy Tobacco use disorder: nicotine supplement offered and put in place. #Goals before discharge include: psychiatric stabilization Tentative Discharge: Friday Sodium 138 mmol/L (135-145) 07/11/19 17:40 Potassium 3.6 mmol/L (3.5-5.0) 07/11/19 17:40 BUN 13 mg/dL (6-24) 07/11/19 17:40 Creatinine 0.86 mg/dL (0.51-0.95) 07/11/19 17:40 Hemoglobin A1c 4.7 % (4.0-5.6) 07/13/19 07:59 Calcium 9.7 mg/dL (8.6-10.3) 07/11/19 17:40 AST 20 U/L (13-39) 07/11/19 17:40 ALT 17 U/L (7-52) 07/11/19 17:40 Triglycerides 162 mg/dL 07/13/19 07:59 Cholesterol 154 mg/dL 07/13/19 07:59 LDL Cholesterol 80 mg/dL 07/13/19 07:59 Continued Medication Management: Continue Outpt Medication Medications: Current Medications Acetaminophen (Tylenol Tab*) 650 mg PO Q4H PRN PRN Reason: PAIN or TEMP > 101 F Al Hydrox/Mg Hydrox/Simethicone (Maalox Plus*) 30 ml PO Q4H PRN PRN Reason: INDIGESTION Hydroxyzine HCl (Atarax Tab*) 25 mg PO Q6H PRN PRN Reason: ANXIETY Last Admin: 07/13/19 10:43 Dose: 25 mg Multivitamins (Theragran Tab*) 1 tab PO DAILY [facility] Last Admin: 07/16/19 09:06 Dose: 1 tab Nicotine (Nicotine Patch 21 Mg/24 Hr*) 1 patch TRANSDERM DAILY [facility] Last Admin: 07/16/19 09:06 Dose: Not Given Nicotine Polacrilex (Nicotine Gum*) 2 mg PO Q2H PRN PRN Reason: CRAVINGS Olanzapine (Zyprexa *Odt*) 10 mg PO Q6H PRN PRN Reason: AGITATION Last Admin: 07/13/19 10:43 Dose: 10 mg Paliperidone Palmitate (Invega Sustenna*) 156 mg IM ONCE ONE Stop: 07/19/19 08:44 Pharmacy Profile Note (Nicotine Patch Removal Note*) 1 note PATCH OFF 2100 [facility] Last Admin: 07/15/19 23:24 Dose: Not Given Quetiapine Fumarate (Seroquel Tab*) 300 mg PO BEDTIME [facility] Last Admin: 07/15/19 23:22 Dose: 300 mg - Discharge Plan Discharge Plan: Inpatient Hospitalization Outpatient Program: ACT
[2019-07-16] MEDS: QUEtiapine TAB* 100 MG PO SCH (20:32)
[2019-07-16] MEDS: Nicotine Patch Removal NOTE PATCH OFF SCH (20:34)
[2019-07-17] MEDS: Nicotine PATCH 21 MG/24 HR* PATCH TRANSDERM SCH (08:09)
[2019-07-17] MEDS: Vitamin THERAPEUTIC TAB PO SCH (10:38)
[2019-07-17] MEDS: Nicotine Patch Removal NOTE PATCH OFF SCH (20:37)
[2019-07-17] MEDS: QUEtiapine TAB* 100 MG PO SCH (20:38)
[2019-07-18] MEDS: Vitamin THERAPEUTIC TAB PO SCH (09:13)
[2019-07-18] MEDS: Nicotine PATCH 21 MG/24 HR* PATCH TRANSDERM SCH (09:13)
[2019-07-18] MEDS: Nicotine Patch Removal NOTE PATCH OFF SCH (21:44)
[2019-07-18] MEDS: QUEtiapine TAB* 100 MG PO SCH (21:44)
[2019-07-19] MEDS ORDERED: Paliperidone SUSTENNA* 156 MG/1 ML IM ONE (08:43)
[2019-07-19] MEDS: Vitamin THERAPEUTIC TAB PO SCH (09:31)
[2019-07-19] MEDS: Nicotine PATCH 21 MG/24 HR* PATCH TRANSDERM SCH (09:32)
--- NOTE | 2019-07-19 11:41 | PN ---
Subjective - Subjective Date of Service: 07/19/19 Service Type: 28265 Hosp care 35 min high complexity Subjective: Nursing Report: Patient was visible on unit, no behavioral incidents. Slept overnight. Attending group activities. CC: "I am doing better Patient was seen and evaluated today in the common room. The patient reported she feels safe on the unit. She received her invega injection today. She reported having adequate appetite and sleep. Per nursing no behavioral issues or overnight events reported. Patient reported that she is tolerating medications without side effects. Objective - General Observations Appearance: Neat Appears Stated Age: Yes Stature: WNL Posture: WNL Eye Contact: Average Behavior/Activity: WNL - Interaction Observations Attitude Towards Examiner: Cooperative Stated Mood: Anxious Affect: Restricted Speech Pattern/Tone: Normal Volume Thought Process: Coherent Perception: WNL Thought Content: WNL Hallucination Type: None Delusion Type: None - Cognitive Function Orientation: A&O x 4 Level of Consciousness: Awake - Medication Compliance Cooperative with Inpatient Medication Regimen: Yes - Group Participation Participates in Group Activities: No Assessment - Assessment Merits Inpatient Hospitalization: For Immediate Safety Clinical Impression: 43 year old female with history of Schizoaffective disorder bipolar type came to the hospital by police with disorganized thinking and behavior and non compliant with medication and was admitted to the BSU at [facility]. Plan - Plan Treatment Plan: Name: ALICE KENNEY Birthdate: 1975 [id number] #Q30 minute observation. # The patient requires psychiatric inpatient admission at this time to assure safety, receive treatment and work toward stabilization. # Obtain collateral information once release is signed. # Collaboration with Social Work # ACT plans to evaluate patient tomorrow # Continue seroquel 300mg qhs #Patient received 234mg of Invega sustenna on 07/14/19 without complication and received 156mg on 07/19/19 without complications #Patient on 2 anti-psychotics and due to failure multiple failures of anti psychotic monotherapy and patient shows good treatment response with current treatment. Tobacco use disorder: nicotine supplement offered and put in place. #Goals before discharge include: psychiatric stabilization Tentative Discharge: Friday Sodium 138 mmol/L (135-145) 07/11/19 17:40 Potassium 3.6 mmol/L (3.5-5.0) 07/11/19 17:40 BUN 13 mg/dL (6-24) 07/11/19 17:40 Creatinine 0.86 mg/dL (0.51-0.95) 07/11/19 17:40 Hemoglobin A1c 4.7 % (4.0-5.6) 07/13/19 07:59 Calcium 9.7 mg/dL (8.6-10.3) 07/11/19 17:40 AST 20 U/L (13-39) 07/11/19 17:40 ALT 17 U/L (7-52) 07/11/19 17:40 Triglycerides 162 mg/dL 07/13/19 07:59 Cholesterol 154 mg/dL 07/13/19 07:59 LDL Cholesterol 80 mg/dL 07/13/19 07:59 Continued Medication Management: Continue Outpt Medication Medications: Current Medications Acetaminophen (Tylenol Tab*) 650 mg PO Q4H PRN PRN Reason: PAIN or TEMP > 101 F Al Hydrox/Mg Hydrox/Simethicone (Maalox Plus*) 30 ml PO Q4H PRN PRN Reason: INDIGESTION Hydroxyzine HCl (Atarax Tab*) 25 mg PO Q6H PRN PRN Reason: ANXIETY Last Admin: 07/13/19 10:43 Dose: 25 mg Multivitamins (Theragran Tab*) 1 tab PO DAILY [facility] Last Admin: 07/19/19 09:31 Dose: 1 tab Nicotine (Nicotine Patch 21 Mg/24 Hr*) 1 patch TRANSDERM DAILY [facility] Last Admin: 07/19/19 09:32 Dose: Not Given Nicotine Polacrilex (Nicotine Gum*) 2 mg PO Q2H PRN PRN Reason: CRAVINGS Olanzapine (Zyprexa *Odt*) 10 mg PO Q6H PRN PRN Reason: AGITATION Last Admin: 07/13/19 10:43 Dose: 10 mg Pharmacy Profile Note (Nicotine Patch Removal Note*) 1 note PATCH OFF 2100 [facility] Last Admin: 07/18/19 21:44 Dose: Not Given Quetiapine Fumarate (Seroquel Tab*) 300 mg PO BEDTIME [facility] Last Admin: 07/18/19 21:44 Dose: 300 mg - Discharge Plan Discharge Plan: Inpatient Hospitalization Outpatient Program: ACT
[2019-07-19] MEDS: QUEtiapine TAB* 100 MG PO SCH (20:05)
[2019-07-19] MEDS: Nicotine Patch Removal NOTE PATCH OFF SCH (20:06)
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
[2019-07-20] MEDS: Nicotine PATCH 21 MG/24 HR* PATCH TRANSDERM SCH (10:17)
[2019-07-20] MEDS: Vitamin THERAPEUTIC TAB PO SCH (10:28)
[2019-07-20 10:43] VITALS: BP 121/78
[2019-07-20] MEDS ORDERED: Ammonia Inhalant* 1 EA AMP INH ONE (12:20)
[2019-07-20] MEDS ORDERED: QUEtiapine TAB* 100 MG PO SCH (21:00)
== END 2019-07-20 16:00 | disposition home or self-care (01) | DRG 885 ==
LOC: ED 17:15 → BSU 22:40
PROVIDERS: ADMIT Psychiatry & Neurology Psychiatry; ATTEND Psychiatry & Neurology Psychiatry
DX: F25.0 Schizoaffective disorder, bipolar type (principal); F17.210 Nicotine dependence, cigarettes, uncomplicated; Z62.810 Personal history of physical and sexual abuse in childhood; J45.909 Unspecified asthma, uncomplicated; Z81.8 Family history of other mental and behavioral disorders; Z88.8 Allergy status to other drugs, medicaments and biological substances; Z79.899 Other long term (current) drug therapy; Z91.14 Patient's other noncompliance with medication regimen
CPT/HCPCS: 36415; 80053; 80061; 80307; 80320; 80329; 81003; 81015; 82550; 83036; 84443; 84702; 85025; 87086; 99222; 99233; 99238; 99284; A9270-GY; G0480

== ENCOUNTER 2020-01-26 00:53 | Inpatient (IN) ==
[2020-01-26 01:24] LABS: ABS Eosinophils 0.1 10^3/ul (0-0.6); ABS Lymphocytes 1.1 10^3/ul (1.0-4.8); ABS Monocytes 0.7 10^3/ul (0-0.8); Eosinophil % 0.6 %; Hematocrit 41 % (35-47); Hemoglobin 14.2 g/dL (12.0-16.0); Lymphocyte % 11.5 %; Mean Corpuscular HGB Conc 35 g/dL (31-36); Mean Corpuscular Hemoglobin 33 pg (27-31); Mean Corpuscular Volume 95 fL (80-97); Mean Platelet Volume 7.8 fL (7.4-10.4); Platelet Count 209 10^3/uL (150-450); Red Blood Count 4.31 10^6 /uL (3.70-4.87); Red Cell Distribution Width 13 % (10-15); White Blood Count 9.2 10^3/uL (3.5-10.8)
[2020-01-26 01:42] LABS: ALT 31 U/L (7-52); AST 37 U/L (13-39); Albumin 4.7 g/dL (3.2-5.2); Albumin/Globulin Ratio 1.9 (1-3); Alkaline Phosphatase 60 U/L (34-104); Anion Gap 11 mmol/L (2-11); BUN/Creatinine Ratio 23.4 (8-20); Blood Urea Nitrogen 18 mg/dL (6-24); CO2 Carbon Dioxide 21 mmol/L (22-32); Calcium 9.3 mg/dL (8.6-10.3); Chloride 107 mmol/L (101-111); EGFR African American 97.7 (>60); EGFR Non-African American 80.7 (>60); Globulin 2.5 g/dL (2-4); Glucose 110 mg/dL (70-100); Potassium 3.4 mmol/L (3.5-5.0); Sodium 139 mmol/L (135-145); Total Protein 7.2 g/dL (6.4-8.9)
[2020-01-26 01:48] LABS: HCG Pregnancy < 0.60 mIU/mL
[2020-01-26 01:50] LABS: Acetaminophen < 15 mcg/mL; Alcohol, S < 10 mg/dL (<10); Salicylate < 2.50 mg/dL (<30)
[2020-01-26 02:03] LABS: Urine Appearance Cloudy; Urine Bilirubin Negative (Negative); Urine Blood 2+ (Negative); Urine Color Amber; Urine Glucose Negative (Negative); Urine Ketones 2+ (Negative); Urine Nitrite Negative (Negative); Urine Protein 1+(30 mg/dL) (Negative); Urine Specific Gravity 1.028 (1.010-1.030); Urine Urobilinogen Negative (Negative)
[2020-01-26 02:06] LABS: TSH (Thyroid Stimulating Horm) 2.59 mcIU/mL (0.34-5.60)
[2020-01-26 02:18] LABS: Urine Bacteria Absent (Absent); Urine Red Blood Cell 3+(>10/hpf) (Absent); Urine Squamous Epithelial Cell Present (Absent); Urine White Blood Cell Trace(0-5/hpf) (Absent)
[2020-01-26 02:22] LABS: Urine Benzodiazepine Screen None Detected (None Detect); Urine Opiates Screen None Detected (None Detect)
[2020-01-26] MEDS ORDERED: NS 0.9% 1000 ml BAG 1,000 ML IV ONE (02:56)
[2020-01-26] MEDS ORDERED: Ammonia Inhalant 1 EA AMP INH ONE (03:47)
[2020-01-26] MEDS ORDERED: LORazepam 2 mg VIAL 1 ml IM ONE (05:46)
[2020-01-26] MEDS ORDERED: Lorazepam PYXIS KEY PRN ×2 (05:46→09:42)
[2020-01-26] MEDS ORDERED: Al Hydrox/Mg Hydrox/Simet LIQ 30 ML UDC PO PRN (09:40)
[2020-01-26] MEDS ORDERED: LORazepam 2 mg VIAL 1 ml IM PRN (09:42)
[2020-01-26] MEDS: QUETIAPINE 300 MG PO SCH (21:37)
[2020-01-27] MEDS ORDERED: LORazepam 2 mg VIAL 1 ml IM PRN (16:14)
[2020-01-27] MEDS: QUETIAPINE 300 MG PO SCH (20:57)
[2020-01-28] MEDS: QUETIAPINE 300 MG PO SCH (20:33)
[2020-01-29] MEDS: QUETIAPINE 300 MG PO SCH (21:37)
[2020-01-30] MEDS: QUETIAPINE 300 MG PO SCH (21:40)
[2020-01-31] MEDS: QUETIAPINE 300 MG PO SCH (20:50)
[2020-02-02] MEDS: QUETIAPINE 300 MG PO SCH ×2 (01:00→01:04)
[2020-02-02 09:55] VITALS: BP 118/73
[2020-02-02 13:06] LABS: HDL Cholesterol 50.6 mg/dL
== END 2020-02-02 13:00 | disposition home or self-care (01) | DRG 885 ==
LOC: EDBD → ED 00:53 → MERGE 09:40 → BSU 09:40 → ED 10:54 → BSU 01-31 17:49
PROVIDERS: ADMIT Psychiatry & Neurology Psychiatry; ATTEND Psychiatry & Neurology Psychiatry

== ENCOUNTER 2020-02-03 04:40 | Inpatient (IN) ==
[2020-02-03 08:23] LABS: Urine Appearance Clear; Urine Bilirubin Negative (Negative); Urine Blood Negative (Negative); Urine Color Yellow; Urine Glucose Negative (Negative); Urine Ketones Negative (Negative); Urine Nitrite Negative (Negative); Urine Protein Negative (Negative); Urine Specific Gravity 1.013 (1.010-1.030); Urine Urobilinogen Negative (Negative)
[2020-02-03 08:41] LABS: Urine Benzodiazepine Screen None Detected (None Detect); Urine Opiates Screen None Detected (None Detect)
[2020-02-03] MEDS ORDERED: Al Hydrox/Mg Hydrox/Simet LIQ 30 ML UDC PO PRN (08:49)
[2020-02-03] MEDS: Vitamin THERAPEUTIC TAB PO SCH (13:10)
[2020-02-03] MEDS: QUETIAPINE 300 MG PO SCH (21:59)
[2020-02-04] MEDS: Vitamin THERAPEUTIC TAB PO SCH (12:04)
[2020-02-04] MEDS: QUETIAPINE 300 MG PO SCH (21:22)
[2020-02-05 08:21] LABS: HDL Cholesterol 46.5 mg/dL
[2020-02-05] MEDS: Vitamin THERAPEUTIC TAB PO SCH (12:12)
[2020-02-05] MEDS: QUETIAPINE 300 MG PO SCH (21:52)
[2020-02-06] MEDS: Vitamin THERAPEUTIC TAB PO SCH (11:49)
[2020-02-06] MEDS: QUETIAPINE 300 MG PO SCH (22:24)
[2020-02-07] MEDS: Vitamin THERAPEUTIC TAB PO SCH (10:02)
[2020-02-07 17:37] VITALS: BP 121/75
[2020-02-07] MEDS: QUETIAPINE 300 MG PO SCH (21:39)
[2020-02-08] MEDS: Vitamin THERAPEUTIC TAB PO SCH (08:47)
== END 2020-02-08 09:55 | disposition home or self-care (01) | DRG 885 ==
LOC: ED 06:42 → BSU 08:49
PROVIDERS: ADMIT Psychiatry & Neurology Psychiatry; ATTEND Psychiatry & Neurology Psychiatry

== ENCOUNTER 2020-03-09 13:57 | Inpatient (IN) ==
[2020-03-09] MEDS ORDERED: Al Hydrox/Mg Hydrox/Simet LIQ 30 ML UDC PO PRN (17:55)
[2020-03-10 08:35] LABS: HDL Cholesterol 34.1 mg/dL
[2020-03-10] MEDS: Vitamin THERAPEUTIC TAB PO SCH (09:11)
[2020-03-11] MEDS: Vitamin THERAPEUTIC TAB PO SCH (11:56)
[2020-03-12] MEDS: Vitamin THERAPEUTIC TAB PO SCH (07:55)
[2020-03-13] MEDS: Vitamin THERAPEUTIC TAB PO SCH (07:27)
[2020-03-14] MEDS: Vitamin THERAPEUTIC TAB PO SCH (08:33)
[2020-03-15] MEDS: Vitamin THERAPEUTIC TAB PO SCH (08:26)
[2020-03-16] MEDS: Vitamin THERAPEUTIC TAB PO SCH (10:12)
[2020-03-17] MEDS: Vitamin THERAPEUTIC TAB PO SCH (08:37)
[2020-03-18] MEDS: Vitamin THERAPEUTIC TAB PO SCH (10:09)
[2020-03-19] MEDS: Vitamin THERAPEUTIC TAB PO SCH (08:28)
[2020-03-20] MEDS: Vitamin THERAPEUTIC TAB PO SCH (08:26)
[2020-03-21] MEDS: Vitamin THERAPEUTIC TAB PO SCH (08:19)
[2020-03-22] MEDS: Vitamin THERAPEUTIC TAB PO SCH (10:08)
[2020-03-23] MEDS: Vitamin THERAPEUTIC TAB PO SCH (08:18)
[2020-03-24] MEDS: Vitamin THERAPEUTIC TAB PO SCH (08:32)
[2020-03-25] MEDS: Vitamin THERAPEUTIC TAB PO SCH (08:16)
[2020-03-26] MEDS: Vitamin THERAPEUTIC TAB PO SCH (08:43)
[2020-03-27] MEDS: Vitamin THERAPEUTIC TAB PO SCH (09:07)
[2020-03-27 11:28] VITALS: BP 107/69
== END 2020-03-27 13:00 | disposition home or self-care (01) | DRG 885 ==
LOC: ED 13:57 → BSU 21:35
PROVIDERS: ADMIT Psychiatry & Neurology Psychiatry; ATTEND Psychiatry & Neurology Psychiatry

== ENCOUNTER 2020-03-29 02:08 | Inpatient (IN) ==
[2020-03-29 03:28] LABS: ABS Lymphocytes 0.8 10^3/ul (1.0-4.8); ABS Monocytes 0.4 10^3/ul (0-0.8); ABS Neutrophils 6.5 10^3/ul (1.5-7.7); Eosinophil % 0.4 %; Hematocrit 40 % (35-47); Lymphocyte % 9.9 %; Mean Corpuscular HGB Conc 35 g/dL (31-36); Mean Corpuscular Hemoglobin 33 pg (27-31); Mean Corpuscular Volume 92 fL (80-97); Mean Platelet Volume 7.9 fL (7.4-10.4); Platelet Count 268 10^3/uL (150-450); Red Blood Count 4.32 10^6 /uL (3.70-4.87); Red Cell Distribution Width 13 % (10-15); White Blood Count 7.8 10^3/uL (3.5-10.8)
[2020-03-29 03:46] LABS: ALT 34 U/L (7-52); AST 27 U/L (13-39); Acetaminophen < 15 mcg/mL; Albumin 5.2 g/dL (3.2-5.2); Albumin/Globulin Ratio 1.7 (1-3); Alkaline Phosphatase 66 U/L (34-104); Anion Gap 11 mmol/L (2-11); BUN/Creatinine Ratio 16.9 (8-20); Blood Urea Nitrogen 14 mg/dL (6-24); CO2 Carbon Dioxide 23 mmol/L (22-32); Chloride 104 mmol/L (101-111); EGFR African American 89.6 (>60); Globulin 3.1 g/dL (2-4); Glucose 141 mg/dL (70-100); Potassium 4.1 mmol/L (3.5-5.0); Salicylate < 2.50 mg/dL (<30); Sodium 138 mmol/L (135-145); Total Protein 8.3 g/dL (6.4-8.9)
[2020-03-29 04:02] LABS: TSH Ultra Thyroid Stim Horm 3.29 mcIU/mL (0.34-5.60)
[2020-03-29 04:05] LABS: Alcohol, S < 10 mg/dL (<10)
[2020-03-29] MEDS ORDERED: Al Hydrox/Mg Hydrox/Simet LIQ 30 ML UDC PO PRN (08:55)
[2020-03-29] MEDS ORDERED: Nicotine GUM 2MG FRUIT FLAVOR PO PRN (09:00)
[2020-03-29] MEDS: Vitamin THERAPEUTIC TAB PO SCH (12:01)
[2020-03-30] MEDS: Vitamin THERAPEUTIC TAB PO SCH (08:49)
[2020-03-31] MEDS: Vitamin THERAPEUTIC TAB PO SCH (11:20)
[2020-03-31] MEDS ORDERED: Paliperidone SUSTENNA 234 MG/1.5 ML IM ONE (19:00)
[2020-04-01] MEDS: Vitamin THERAPEUTIC TAB PO SCH (13:43)
[2020-04-02] MEDS: Vitamin THERAPEUTIC TAB PO SCH (10:44)
[2020-04-03] MEDS: Vitamin THERAPEUTIC TAB PO SCH (07:29)
[2020-04-04] MEDS: Vitamin THERAPEUTIC TAB PO SCH (10:08)
[2020-04-05] MEDS: Vitamin THERAPEUTIC TAB PO SCH ×2 (12:04→12:09)
[2020-04-05] MEDS ORDERED: Paliperidone SUSTENNA 156 MG/1 ML IM ONE (14:43)
[2020-04-06] MEDS: Vitamin THERAPEUTIC TAB PO SCH (11:09)
[2020-04-07] MEDS: Vitamin THERAPEUTIC TAB PO SCH (10:58)
[2020-04-08] MEDS: Vitamin THERAPEUTIC TAB PO SCH (11:48)
[2020-04-09] MEDS: Vitamin THERAPEUTIC TAB PO SCH (10:48)
[2020-04-10] MEDS: Vitamin THERAPEUTIC TAB PO SCH (12:52)
[2020-04-11] MEDS: Vitamin THERAPEUTIC TAB PO SCH ×2 (10:46→12:10)
[2020-04-12] MEDS: Vitamin THERAPEUTIC TAB PO SCH (11:24)
[2020-04-13] MEDS: Vitamin THERAPEUTIC TAB PO SCH (10:11)
[2020-04-14] MEDS: Vitamin THERAPEUTIC TAB PO SCH (12:04)
[2020-04-15] MEDS: Vitamin THERAPEUTIC TAB PO SCH ×2 (11:52→13:09)
[2020-04-16] MEDS: Vitamin THERAPEUTIC TAB PO SCH (10:29)
[2020-04-17] MEDS: Vitamin THERAPEUTIC TAB PO SCH (09:19)
[2020-04-17 23:41] VITALS: BP 117/71
[2020-04-18] MEDS: Vitamin THERAPEUTIC TAB PO SCH (09:07)
== END 2020-04-18 11:45 | disposition short-term general hospital (02) ==
LOC: ED 02:08 → BSU 07:37 → ED 08:32 → BSU 04-01 12:35
PROVIDERS: ADMIT Psychiatry & Neurology Psychiatry; ATTEND Psychiatry & Neurology Psychiatry

== ENCOUNTER 2020-11-12 06:35 | Inpatient (IN) ==
[2020-11-12 07:48] LABS: ABS Eosinophils 0.1 10^3/ul (0-0.6); ABS Lymphocytes 0.9 10^3/ul (1.0-4.8); ABS Monocytes 0.5 10^3/ul (0-0.8); ABS Neutrophils 5.1 10^3/ul (1.5-7.7); Eosinophil % 1.4 %; Hematocrit 42 % (35-47); Hemoglobin 14.2 g/dL (12.0-16.0); Lymphocyte % 13.1 %; Mean Corpuscular HGB Conc 34 g/dL (31-36); Mean Corpuscular Hemoglobin 31 pg (27-31); Mean Corpuscular Volume 92 fL (80-97); Mean Platelet Volume 8.9 fL (7.4-10.4); Platelet Count 285 10^3/uL (150-450); Red Blood Count 4.61 10^6 /uL (3.70-4.87); Red Cell Distribution Width 14 % (10-15); White Blood Count 6.5 10^3/uL (3.5-10.8)
[2020-11-12 08:03] LABS: ALT 70 U/L (7-52); AST 35 U/L (13-39); Albumin 4.8 g/dL (3.2-5.2); Albumin/Globulin Ratio 1.7 (1-3); Alkaline Phosphatase 88 U/L (34-104); Anion Gap 7 mmol/L (2-11); BUN/Creatinine Ratio 14.6 (8-20); Blood Urea Nitrogen 14 mg/dL (6-24); CO2 Carbon Dioxide 24 mmol/L (22-32); Calcium 9.5 mg/dL (8.6-10.3); Chloride 105 mmol/L (101-111); EGFR African American 75.4 (>60); EGFR Non-African American 62.3 (>60); Globulin 2.9 g/dL (2-4); Glucose 142 mg/dL (70-100); Potassium 4.2 mmol/L (3.5-5.0); Sodium 136 mmol/L (135-145); Total Protein 7.7 g/dL (6.4-8.9)
[2020-11-12 08:10] LABS: Acetaminophen < 15 mcg/mL; Alcohol, S < 10 mg/dL (<10); HCG Pregnancy < 0.60 mIU/mL; Salicylate < 2.50 mg/dL (<30)
[2020-11-12 08:24] LABS: TSH Ultra Thyroid Stim Horm 1.43 mcIU/mL (0.34-5.60)
[2020-11-12 09:27] LABS: Urine Benzodiazepine Screen None Detected (None Detect); Urine Cannabinoids Screen None Detected (None Detect); Urine Opiates Screen None Detected (None Detect)
[2020-11-12 09:28] LABS: Urine Appearance Clear; Urine Bilirubin Negative (Negative); Urine Blood Negative (Negative); Urine Color Yellow; Urine Glucose Negative (Negative); Urine Ketones Trace (Negative); Urine Nitrite Negative (Negative); Urine Protein Negative (Negative); Urine Specific Gravity 1.008 (1.002-1.030); Urine Urobilinogen Negative (Negative)
[2020-11-13] MEDS ORDERED: Al Hydrox/Mg Hydrox/Simet LIQ 30 ML UDC PO PRN (10:21)
[2020-11-13] MEDS ORDERED: Nicotine GUM 2MG FRUIT FLAVOR PO PRN (10:21)
[2020-11-13] MEDS: Vitamin THERAPEUTIC TAB PO SCH (13:47)
[2020-11-13] MEDS: Nicotine PATCH 14 MG/24 HR PATCH TRANSDERM SCH (13:47)
[2020-11-14] MEDS: Nicotine PATCH 14 MG/24 HR PATCH TRANSDERM SCH ×2 (08:27→13:11)
[2020-11-14] MEDS: Vitamin THERAPEUTIC TAB PO SCH ×2 (08:27→13:12)
[2020-11-15] MEDS: Nicotine PATCH 14 MG/24 HR PATCH TRANSDERM SCH (11:56)
[2020-11-15] MEDS: Vitamin THERAPEUTIC TAB PO SCH (11:57)
[2020-11-16] MEDS: Nicotine PATCH 14 MG/24 HR PATCH TRANSDERM SCH (09:43)
[2020-11-16] MEDS: Vitamin THERAPEUTIC TAB PO SCH (09:44)
[2020-11-17] MEDS: Vitamin THERAPEUTIC TAB PO SCH (10:10)
[2020-11-17] MEDS: Nicotine PATCH 14 MG/24 HR PATCH TRANSDERM SCH (10:10)
[2020-11-18] MEDS: Nicotine PATCH 14 MG/24 HR PATCH TRANSDERM SCH (08:04)
[2020-11-18] MEDS: Vitamin THERAPEUTIC TAB PO SCH (08:40)
[2020-11-19] MEDS: Vitamin THERAPEUTIC TAB PO SCH (09:02)
[2020-11-19] MEDS: Nicotine PATCH 14 MG/24 HR PATCH TRANSDERM SCH (09:02)
[2020-11-20] MEDS: Nicotine PATCH 14 MG/24 HR PATCH TRANSDERM SCH (10:31)
[2020-11-20] MEDS: Vitamin THERAPEUTIC TAB PO SCH (12:38)
[2020-11-21] MEDS: Vitamin THERAPEUTIC TAB PO SCH (09:26)
[2020-11-21] MEDS: Nicotine PATCH 14 MG/24 HR PATCH TRANSDERM SCH (09:26)
[2020-11-22] MEDS: Vitamin THERAPEUTIC TAB PO SCH (09:31)
[2020-11-22] MEDS: Nicotine PATCH 14 MG/24 HR PATCH TRANSDERM SCH (09:31)
[2020-11-23] MEDS: Vitamin THERAPEUTIC TAB PO SCH (10:15)
[2020-11-23] MEDS: Nicotine PATCH 14 MG/24 HR PATCH TRANSDERM SCH (10:16)
[2020-11-24] MEDS: Vitamin THERAPEUTIC TAB PO SCH (08:36)
[2020-11-24] MEDS: Nicotine PATCH 14 MG/24 HR PATCH TRANSDERM SCH (08:36)
[2020-11-25 08:45] LABS: HDL Cholesterol 38.8 mg/dL
[2020-11-25] MEDS: Nicotine PATCH 14 MG/24 HR PATCH TRANSDERM SCH (09:26)
[2020-11-25] MEDS: Vitamin THERAPEUTIC TAB PO SCH (13:14)
[2020-11-26] MEDS: Vitamin THERAPEUTIC TAB PO SCH (08:49)
[2020-11-26] MEDS: Nicotine PATCH 14 MG/24 HR PATCH TRANSDERM SCH (08:49)
[2020-11-27] MEDS: Nicotine PATCH 14 MG/24 HR PATCH TRANSDERM SCH (07:38)
[2020-11-27] MEDS: Vitamin THERAPEUTIC TAB PO SCH ×2 (07:38→08:52)
[2020-11-28] MEDS: Vitamin THERAPEUTIC TAB PO SCH (10:51)
[2020-11-28] MEDS: Nicotine PATCH 14 MG/24 HR PATCH TRANSDERM SCH (10:52)
[2020-11-29] MEDS: Nicotine PATCH 14 MG/24 HR PATCH TRANSDERM SCH (09:18)
[2020-11-29] MEDS: Vitamin THERAPEUTIC TAB PO SCH (12:42)
[2020-11-30] MEDS: Vitamin THERAPEUTIC TAB PO SCH (11:57)
[2020-11-30] MEDS: Nicotine PATCH 14 MG/24 HR PATCH TRANSDERM SCH (11:57)
[2020-12-01 13:31] LABS: ABS Basophils 0.1 10^3/ul (0-0.2); ABS Eosinophils 0.2 10^3/ul (0-0.6); ABS Lymphocytes 1.5 10^3/ul (1.0-4.8); ABS Monocytes 0.3 10^3/ul (0-0.8); ABS Neutrophils 4.9 10^3/ul (1.5-7.7); Eosinophil % 2.3 %; Hematocrit 41 % (35-47); Mean Corpuscular HGB Conc 34 g/dL (31-36); Mean Corpuscular Hemoglobin 31 pg (27-31); Mean Corpuscular Volume 90 fL (80-97); Platelet Count 266 10^3/uL (150-450); Red Cell Distribution Width 14 % (10-15); White Blood Count 6.9 10^3/uL (3.5-10.8)
[2020-12-01] MEDS: Nicotine PATCH 14 MG/24 HR PATCH TRANSDERM SCH (13:57)
[2020-12-01] MEDS: Vitamin THERAPEUTIC TAB PO SCH (13:57)
[2020-12-01 14:14] LABS: Albumin 4.1 g/dL (3.2-5.2); Albumin/Globulin Ratio 1.6 (1-3); Calcium 9.2 mg/dL (8.6-10.3); EGFR African American 90.4 (>60); EGFR Non-African American 74.7 (>60); Globulin 2.6 g/dL (2-4); Potassium 4.2 mmol/L (3.5-5.0); Total Bilirubin 0.3 mg/dL (0.2-1.0); Total Protein 6.7 g/dL (6.4-8.9)
[2020-12-02] MEDS: Vitamin THERAPEUTIC TAB PO SCH (10:11)
[2020-12-02] MEDS: Nicotine PATCH 14 MG/24 HR PATCH TRANSDERM SCH (10:11)
[2020-12-03] MEDS: Vitamin THERAPEUTIC TAB PO SCH (10:11)
[2020-12-03] MEDS: Nicotine PATCH 14 MG/24 HR PATCH TRANSDERM SCH (10:12)
[2020-12-04] MEDS: Vitamin THERAPEUTIC TAB PO SCH (10:56)
[2020-12-04] MEDS: Nicotine PATCH 14 MG/24 HR PATCH TRANSDERM SCH (10:57)
[2020-12-05] MEDS: Nicotine PATCH 14 MG/24 HR PATCH TRANSDERM SCH (12:09)
[2020-12-05] MEDS: Vitamin THERAPEUTIC TAB PO SCH (12:09)
[2020-12-06] MEDS: Vitamin THERAPEUTIC TAB PO SCH (08:22)
[2020-12-06] MEDS: Nicotine PATCH 14 MG/24 HR PATCH TRANSDERM SCH (08:23)
[2020-12-06 09:48] VITALS: BP 111/69
== END 2020-12-06 13:40 | DRG 885 ==
LOC: ED 06:35 → BSU 14:20
PROVIDERS: ADMIT Psychiatry & Neurology Psychiatry; ATTEND Psychiatry & Neurology Psychiatry

== ENCOUNTER 2022-01-01 21:01 | Inpatient (IN) ==
[2022-01-01 22:02] LABS: ABS Monocytes 0.7 10^3/ul (0-0.8); ABS Neutrophils 10.4 10^3/ul (1.5-7.7); Eosinophil % 0.1 %; Hematocrit 41 % (35-47); Mean Corpuscular HGB Conc 34 g/dL (31-36); Mean Corpuscular Hemoglobin 32 pg (27-31); Mean Corpuscular Volume 93 fL (80-97); Mean Platelet Volume 8.5 fL (7.4-10.4); Platelet Count 233 10^3/uL (150-450); Red Blood Count 4.46 10^6 /uL (3.70-4.87); Red Cell Distribution Width 13 % (10-15); White Blood Count 12.1 10^3/uL (3.5-10.8)
[2022-01-01 22:45] LABS: ALT 27 U/L (7-52); AST 39 U/L (13-39); Albumin 4.9 g/dL (3.2-5.2); Albumin/Globulin Ratio 2.1 (1-3); Alcohol, S < 13 mg/dL (<13); Alkaline Phosphatase 67 U/L (35-149); Anion Gap 10 mmol/L (2-11); Blood Urea Nitrogen 14 mg/dL (6-24); CO2 Carbon Dioxide 25 mmol/L (22-32); Calcium 9.8 mg/dL (8.6-10.3); Chloride 106 mmol/L (101-111); Globulin 2.3 g/dL (2-4); Glucose 114 mg/dL (70-100); Potassium 3.8 mmol/L (3.5-5.0); Salicylate < 2.50 mg/dL (<30); Sodium 141 mmol/L (135-145); Total Protein 7.2 g/dL (6.4-8.9)
[2022-01-01 22:50] LABS: HCG Pregnancy < 0.60 mIU/mL
[2022-01-01 22:58] LABS: TSH Ultra Thyroid Stim Horm 1.31 mcIU/mL (0.34-5.60)
[2022-01-01 23:00] LABS: Acetaminophen < 15 mcg/mL
[2022-01-02] MEDS ORDERED: Al Hydrox/Mg Hydrox/Simet LIQ 30 ML UDC PO PRN (06:51)
[2022-01-02 06:58] LABS: Urine Appearance Cloudy; Urine Bilirubin Negative (Negative); Urine Blood 1+ (Negative); Urine Color Yellow; Urine Glucose Negative (Negative); Urine Ketones 1+ (Negative); Urine Nitrite Negative (Negative); Urine Protein Negative (Negative); Urine Specific Gravity 1.021 (1.002-1.030); Urine Urobilinogen Negative (Negative)
[2022-01-02 07:03] LABS: Urine Bacteria Absent (Absent); Urine Red Blood Cell Trace(0-2/hpf) (Absent); Urine Squamous Epithelial Cell Present (Absent); Urine White Blood Cell Trace(0-5/hpf) (Absent)
[2022-01-02 07:10] LABS: Urine Benzodiazepine Screen None Detected (None Detect); Urine Cannabinoids Screen None Detected (None Detect); Urine Opiates Screen None Detected (None Detect)
[2022-01-02] MEDS: Vitamin THERAPEUTIC TAB PO SCH (08:57)
[2022-01-02 12:35] LABS: Free T4 1.13 ng/dL (0.61-1.12)
[2022-01-03] MEDS: Vitamin THERAPEUTIC TAB PO SCH (09:14)
[2022-01-04] MEDS: Vitamin THERAPEUTIC TAB PO SCH (10:27)
[2022-01-05] MEDS: Vitamin THERAPEUTIC TAB PO SCH (08:31)
[2022-01-06] MEDS: Vitamin THERAPEUTIC TAB PO SCH (07:38)
[2022-01-07] MEDS: Vitamin THERAPEUTIC TAB PO SCH (10:17)
[2022-01-08] MEDS: Vitamin THERAPEUTIC TAB PO SCH (07:27)
[2022-01-11 08:05] VITALS: BP 115/75
== END 2022-01-11 12:44 | disposition home or self-care (01) | DRG 885 ==
LOC: ED 21:01 → BSU 01-02 06:47
PROVIDERS: ADMIT Psychiatry & Neurology Psychiatry; ATTEND Psychiatry & Neurology Psychiatry

== ENCOUNTER 2024-01-01 00:39 | Inpatient (IN) ==
[2024-01-01 02:57] LABS: Urine Appearance Clear; Urine Bilirubin Negative (Negative); Urine Blood Trace (Negative); Urine Color Yellow; Urine Glucose Negative (Negative); Urine Ketones 1+ (Negative); Urine Nitrite Negative (Negative); Urine Protein 1+ (>=30 mg/dL) (Negative); Urine Specific Gravity 1.021 (1.002-1.030); Urine Urobilinogen Negative (Negative)
[2024-01-01 03:01] LABS: ABS Basophils 0.1 10^3/uL (0.0-0.1); ABS Lymphocytes 1.2 10^3/uL (1.0-4.8); ABS Monocytes 0.9 10^3/uL (0.0-0.9); ABS Neutrophils 14.6 10^3/uL (1.5-7.6); Hematocrit 38.7 % (35-45); Hemoglobin 13.1 g/dL (11.5-14.3); Lymphocyte % 7.1 %; Mean Corpuscular Hemoglobin 29.7 pg (27-33); Mean Corpuscular Hgb Conc 33.8 g/dL (31-36); Mean Corpuscular Volume 87.9 fL (80-97); Mean Platelet Volume 8.2 fL (7.5-11.2); Platelet Count 276 10^3/uL (150-450); Red Blood Count 4.41 10^6/uL (3.63-4.92); Red Cell Distribution Width 13.8 % (12-17); White Blood Count 16.7 10^3/uL (3.8-11.8)
[2024-01-01 03:04] LABS: Urine Bacteria Absent /HPF (Absent); Urine Red Blood Cell Trace(0-2/hpf) /HPF (0-Trace); Urine Squamous Epithelial Cell Present /HPF (Absent); Urine White Blood Cell Trace(0-5/hpf) /HPF (0-Trace)
[2024-01-01 03:20] LABS: Urine Benzodiazepine Screen None Detected (None Detect); Urine Cannabinoids Screen Presumptive Positive (None Detect); Urine Opiates Screen None Detected (None Detect)
[2024-01-01] MEDS ORDERED: Al Hydrox/Mg Hydrox/Simet LIQ 30 ML UDC PO PRN (03:24)
[2024-01-01 03:37] LABS: ALT 25 U/L (7-52); AST 42 U/L (13-39); Acetaminophen < 15 mcg/mL; Albumin 4.6 g/dL (3.2-5.2); Albumin/Globulin Ratio 2.2 (1-3); Alcohol, S < 13 mg/dL (<13); Alkaline Phosphatase 72 U/L (35-149); Anion Gap 9 mmol/L (2-16); Blood Urea Nitrogen 14 mg/dL (6-24); CO2 Carbon Dioxide 25 mmol/L (22-32); Calcium 9.4 mg/dL (8.6-10.3); Chloride 104 mmol/L (101-111); Creatinine, Serum 1.14 mg/dL (0.51-0.95); Globulin 2.1 g/dL (2-4); Glucose 147 mg/dL (70-100); Potassium 4.2 mmol/L (3.5-5.0); Salicylate < 2.50 mg/dL (<30); Sodium 138 mmol/L (135-145); Total Bilirubin 0.4 mg/dL (0.2-1.0); Total Protein 6.7 g/dL (6.4-8.9); eGFR CKD-EPI 58.6 (>60)
[2024-01-01 03:41] LABS: HCG Pregnancy 0.93 mIU/mL
[2024-01-01 03:50] LABS: TSH Ultra Thyroid Stim Horm 1.01 mcIU/mL (0.34-5.60)
[2024-01-01] MEDS: Vitamin THERAPEUTIC TAB PO SCH (09:33)
[2024-01-01] MEDS ORDERED: OLANZapine 5 mg TAB *ODT PO PRN (10:30)
[2024-01-01] MEDS ORDERED: Nicotine GUM 4MG FRUIT FLAVOR PO PRN (12:33)
[2024-01-01] MEDS: Cholecalciferol (VIT D3) 1,000 unit TAB PO SCH (21:53)
[2024-01-01] MEDS: CMCS: OMEGA-3 FATTY ACID 1000 mg(NF) PO SCH (21:54)
[2024-01-02 08:45] LABS: HDL Cholesterol 44.5 mg/dL
[2024-01-02] MEDS: Nicotine PATCH 21 MG/24 HR PATCH TRANSDERM SCH (14:31)
[2024-01-07] MEDS: [UNRECOGNIZED DRUG - OTHER] IM ONE (09:25)
[2024-01-07 11:58] VITALS: BP 117/83
== END 2024-01-07 11:36 | disposition home or self-care (01) | DRG 885 ==
LOC: ED 00:39 → BSU 02:42
PROVIDERS: ADMIT Psychiatry & Neurology Psychiatry; ATTEND Psychiatry & Neurology Psychiatry

== ENCOUNTER 2024-04-11 15:39 | Inpatient (IN) ==
[2024-04-12] MEDS ORDERED: Al Hydrox/Mg Hydrox/Simet LIQ 30 ML UDC PO PRN (09:53)
[2024-04-12] MEDS ORDERED: [UNRECOGNIZED DRUG - OTHER] IM SCH (10:00)
[2024-04-12] MEDS: Cholecalciferol (VIT D3) 1,000 unit TAB PO SCH (19:50)
[2024-04-13] MEDS: Multivitamins/Minerals TAB PO SCH (08:36)
[2024-04-14 07:58] LABS: HDL Cholesterol 37.8 mg/dL
[2024-04-15] MEDS: [UNRECOGNIZED DRUG - OTHER] IM ONE (09:31)
[2024-04-15] MEDS: Influenza Vaccine *TRI* 2024-25* 0.5 ML SYRINGE IM ONE (09:35)
[2024-04-16 09:44] VITALS: BP 123/79
== END 2024-04-16 15:30 | disposition home or self-care (01) | DRG 885 ==
LOC: ED 15:39 → EDHOLD 04-12 09:53 → BSU 04-12 10:54
PROVIDERS: ADMIT Psychiatry & Neurology Psychiatry; ATTEND Psychiatry & Neurology Psychiatry